=== PATIENT | female | born 1940 | race Caucasian/White ===

== ENCOUNTER 2019-02-24 15:59 | Inpatient (IN) | payer MEDICARE, MEDICAID ==
[~2019-02-24] VITALS: Ht 170.2 cm; Wt 52.6 kg
[~2019-02-24 15:59] MED LIST: IBUP-1955 PO
--- NOTE | 2019-02-24 16:12 | NUR ---
PATIENT BIB RA FROM [facility] FOR AGGRESSIVE BEHAVIOR TOWARDS STAFF. PATIENT IS ORDERED BY MD TO BE PLACED ON 2-POINT RESTRAINTS FOR THREATENING BEHAVIOR TOWARDS STAFF. PATIENT IS CONNECTED TO MONITOR. NAD NOTED. NO SOB. CHEST RISES EQUALLY. WILL CONTINUE MONITOR PATIENT FOR SAFETY.
[2019-02-24] MEDS ORDERED: QUET25TA PO (16:24)
[2019-02-24] MEDS ORDERED: SERT25TA PO (16:24)
[2019-02-24] MEDS ORDERED: NEOM28.3 TP (16:24)
[2019-02-24] MEDS ORDERED: AMOX1TAB15 PO (16:24)
[2019-02-24] MEDS ORDERED: SULF1TAB47 PO (16:24)
[2019-02-24] MEDS ORDERED: FURO-144 PO (16:24)
[2019-02-24] MEDS ORDERED: POTA10CA43 PO (16:24)
[2019-02-24] MEDS ORDERED: HALOPERIDOL LACTATE INJ 5 MG/ML VIAL IM ONE (16:30)
[2019-02-24] MEDS ORDERED: MIDAZOLAM HCL 2 MG/2ML VIAL IM ONE (16:30)
[2019-02-24 16:55] LABS: BASOPHILS # (AUTO) 0.1 /CMM (0.0-0.2); BASOPHILS % (AUTO) 1.4 % (0.0-2.0); EOSINOPHILS % (AUTO) 2.4 % (0.0-6.0); HEMATOCRIT 30 % (33-45); HEMOGLOBIN 10.1 g/dL (11.5-14.8); LYMPHOCYTES # (AUTO) 2.9 /CMM (0.8-4.8); LYMPHOCYTES % (AUTO) 34.2 % (20.0-44.0); MEAN CORPUSCULAR HGB CONC 33 g/dl (31.0-36.0); MEAN CORPUSCULAR VOLUME 91 fL (82-100); MONOCYTES % (AUTO) 12.2 % (2.0-12.0); NEUTROPHILS # (AUTO) 4.2 /CMM (1.8-8.9); NEUTROPHILS % (AUTO) 49.8 % (43.0-81.0); PLATELET COUNT (AUTO) 642 /CMM (150-450); RED BLOOD CELL COUNT(AUTO) 3.34 MIL/uL (4.0-5.2); WHITE BLOOD COUNT (AUTO) 8.5 K/uL (4.3-11.0)
[2019-02-24 17:04] LABS: CALCIUM, SERUM 9.2 mg/dL (8.5-10.1); CREATININE 1.1 mg/dL (0.6-1.3); POTASSIUM 4.3 mmol/L (3.5-5.1)
[2019-02-24 17:10] LABS: BILIRUBIN,DIRECT 0.1 mg/dL (0.0-0.2); BILIRUBIN,TOTAL 0.2 mg/dL (0.2-1.0); TOTAL PROTEIN, SERUM 7.2 g/dL (6.4-8.2)
--- NOTE | 2019-02-24 18:15 | NUR ---
CALLED NURSING SUP. FOR [facility] B[facility]
[2019-02-24 18:30] LABS: APPEARANCE,URINE Clear (CLEAR); BILIRUBIN,URINE SMALL (NEGATIVE); BLOOD, URINE Negative Ery/uL (NEGATIVE); COLOR,URINE Yellow (YELLOW); KETONES,URINE Negative (NEGATIVE); LEUKOCYTE ESTERASE ,URINE Negative (NEGATIVE); NITRITE, URINE Negative (NEGATIVE); PROTEIN,URINE Negative (NEGATIVE); UGLUCOSE Negative (NEGATIVE); UROBILINOGEN,URINE 0.2 EU/dL (0.2)
--- NOTE | 2019-02-24 19:34 | NUR ---
[facility]PS 219-A
--- NOTE | 2019-02-24 19:55 | NUR ---
REPORT GIVEN TO CHAY CHEUNG FOR MAGY PT WILL BE TRANSPORTED TO [facility]
--- NOTE | 2019-02-24 21:00 | NUR ---
RN NOTES : PLACED CALL DR. CALABRESE MADE AWARE HIM NEW ADMISSION MED RECON ,PER DR CALABRESE HE WILL SEE THE PATIENT IN THE MORNING
[2019-02-24] MEDS ORDERED: MAG HYDROX/AL HYDROX/SIMETH 30 ML UDC PO PRN (21:30)
[2019-02-24] MEDS ORDERED: BLOOD SUGAR DIAGNOSTIC 1 EACH STRIP IN ONE (21:30)
[2019-02-24] MEDS ORDERED: TEMAZEPAM 7.5 MG CAPSULE PO PRN (21:30)
[2019-02-24] MEDS ORDERED: MAGNESIUM HYDROXIDE 30 ML UDC PO PRN (21:30)
[2019-02-24] MEDS ORDERED: ACETAMINOPHEN 325 MG TABLET PO PRN (21:30)
[2019-02-24 21:40] VITALS: BP 133/66
[2019-02-24 23:16] VITALS: BP 123/70
[2019-02-24] MEDS: LORAZEPAM 0.5 MG TABLET PO PRN (23:33)
--- NOTE | 2019-02-25 00:06 | NUR ---
ADMISSION NOTES: ADMITTED THIS 79Y/O FEMALE PATIENT ADMIT FROM [facility] /INTIALLY FROM [facility] , PT ADMITTED TO [facility] ON 5150 GRAVELY DISABLE, DTO , PER HOLD. PT. WAS VERY LOUD VERBALLY ABUSIVE YELLING SCREAMING, CONFUSED, DISORGNIZED, REFUSING MEDICATIONS ,REFUSING CARE , NON COMPLIANCE WITH MEDS ,UPON FACE TO FACE ASSESSMENT PATIENT IS A&O X1 ,UNCOOPERATIVE, AGGRESSIVE, YELLING SCREAMING DISORGNIZED, CONFUSED ,ANXIOUS, FLAT AFFECT, PARNOID, DISHELVED ,EASILY GETS AGITATED, PER PT. I AM NOT BELONG TO HERE AND WANTS TO LEAVE, PT. IS POOR HISTORIAN, POOR INSIGHT ,POOR JUDGEMENT , PT. REFUSED TO TAKE SHOWER AT THIS TIME , PT. REFUSED TO SIGNING ADMISSION PAPAERS , DUE TO MENTAL STATUS , PT. SKIN ASSESSMENT DONE , PICTURES TAKEN AND PLACED IN THE CHART AND ON ADMISSION PT. PRESENTS WITH COCCYX DECUBITUS ULCER GRADE 3 AND BODY RASHES, WOUND CONSULT ORDERS PT. REFUSED TO CHECK INTIALLY BLOOD SUGAR, PER PT. I AM NOT DIABETIC, I DONT WANTS CHECK AT THIS TIME , ENCOURAGED, EXPLAINED RISKS AND BENEFITS STILL REFUSED, PT. V/S WNL , AWARE AND NOTIFIED OF THE ADMISSION, BELONGINGS CONTRABAND WERE DONE , NURSING ASSESSMENT DONE ,PT. RIGHTS DISCUSS BY CARE PROGRAM RESIDENT , PROVIDE THE PT. WITH HANDBOOK, AND MEDICATIONS GUIDE, ENVIRONMENTAL SAFETY CHECK DONE, ENCOURAGED PT. VERBALIZED ANY FEELING CONCERN TO STAFF, ORIENT TO UNIT POLICY, NO ACUTE DISTRESS NOTED,VITAL SIGNS WNL ,DENIES ANY PAIN AT THIS TIME ,WILL CONTINUE TO MONITOR FOR Q15 SAFETY AND BEHAVIOR. Addendum: 02/25/19 at 0715 by BRENT DIETZ RN ERROR COCCYX DECUBITUS ULCER GRADE 3 CHANGED TO SACRAL OPEN WOUND
[2019-02-25 07:12] LABS: ALBUMIN 2.8 g/dL (3.4-5.0); BILIRUBIN,TOTAL 0.2 mg/dL (0.2-1.0); POTASSIUM 3.4 mmol/L (3.5-5.1); TOTAL PROTEIN, SERUM 6.6 g/dL (6.4-8.2)
[2019-02-25 07:14] LABS: CHOLESTEROL 217 mg/dL (<200); HDL CHOLESTEROL 39 mg/dL (40-60); LDL 155 mg/dL (0-99); TRIGLYCERIDES 87 mg/dL (30-150)
[2019-02-25 08:00] VITALS: BP 100/52
[2019-02-25] MEDS: LORAZEPAM 0.5 MG TABLET PO PRN ×2 (09:49→15:18)
--- NOTE | 2019-02-25 10:47 | NUR ---
WOUND CARE CONSULT: PT PRESENTS WITH UNSTAGEABLE ULCER TO SACRUM, PRESENT ON ADMISSION. DRY BROWN DISCOLORATION NOTED TO TOES OF RT FOOT, ALSO PRESENT ON ADMISSION. PT IS CONTINENT AT THIS TIME AND ABLE TO ASSIST WITH TURNING AND REPOSITIONING IN BED. RECOMMENDATIONS MADE FOR WOUND CARE AND SKIN PROTECTION. DISCUSSED WITH NURSING STAFF. RECOMMEND SURGICAL CONSULT. DEFER TO MD FOR SURGICAL CONSULT. MSG LEFT AT DR ERNIE CALABRESE'S OFFICE. WILL SEE PRN. Addendum: 02/25/19 at 1050 by ELVIN AGUILAR WNDNU Amended: Links added. Addendum: 02/25/19 at 1157 by ELVIN AGUILAR WNDNU EDGE KITTER SPOKE WITH DR CALABRESE AND DR ARIELLA COOPER CONSULTED FOR SURGICAL CONSULT PER DR CALABRESE. DR COOPER AWARE OF CONSULT REQUEST. WOULD NOT RECOMMEND LOW AIRLOSS OVERLAY AT THIS TIME DUE TO FALL RISK. DISCUSSED WITH NURSING STAFF AND EDGE KITTER. CURRENT HILARIO SCORE IS 14.
[2019-02-25] MEDS: HYDROGEL DRESSING 90 GM TUBE TP SCH (11:00)
[2019-02-25 14:57] LABS: IRON, SERUM 43 ug/dl (50-175); TOTAL IRON BINDING CAPACITY 168 ug/dl (250-450)
[2019-02-25] MEDS ORDERED: POTASSIUM CHLORIDE 20 MEQ TAB.PRT.SR PO ONE (15:00)
[2019-02-25 16:00] VITALS: BP 105/67
[2019-02-25] MEDS: ZINC SULFATE 220 MG CAPSULE PO SCH (16:58)
[2019-02-25] MEDS: PANTOPRAZOLE 40 MG TABLET.DR PO SCH (16:58)
[2019-02-25] MEDS: ASCORBIC ACID 500 MG TABLET PO SCH (16:58)
[2019-02-25] MEDS ORDERED: QUETIAPINE FUMARATE 25 MG TABLET PO SCH ×2 (17:00→17:30)
[2019-02-25] MEDS: MULTIVITAMINS,THERAGRAN 1 UDTAB TABLET PO SCH (17:00)
[2019-02-25] MEDS: ENSURE ENLIVE CHOC 237 ML CAN PO SCH (17:03)
[2019-02-25 20:25] VITALS: BP 120/61
[2019-02-25] MEDS: DIVALPROEX SODIUM 125 MG CAP.SPRINK PO SCH (21:00)
[2019-02-25] MEDS: QUETIAPINE FUMARATE 25 MG TABLET PO SCH (21:00)
--- NOTE | 2019-02-25 23:00 | NUR ---
GPS RN NOTE: PATIENT RESTING IN BED, CONFUSED, QUIET, DISORGANIZED, ANXIOUS, PARANOID, EASILY AGITATED, REFUSED HS MEDS, EXPLAINED THE RISK AND BENEFITS X 3 ATTEMPTS BUT PATIENT STILL REFUSED. WILL CONTINUE TO MONITOR Q15 MINS FOR SAFETY
[2019-02-26 08:00] VITALS: BP 130/79
[2019-02-26] MEDS: ENSURE ENLIVE CHOC 237 ML CAN PO SCH ×3 (08:00→17:01)
[2019-02-26] MEDS: PANTOPRAZOLE 40 MG TABLET.DR PO SCH (08:04)
[2019-02-26] MEDS: ASCORBIC ACID 500 MG TABLET PO SCH (08:04)
[2019-02-26] MEDS: DIVALPROEX SODIUM 125 MG CAP.SPRINK PO SCH ×3 (08:04→21:42)
[2019-02-26] MEDS: QUETIAPINE FUMARATE 25 MG TABLET PO SCH ×3 (08:04→21:42)
[2019-02-26] MEDS: ZINC SULFATE 220 MG CAPSULE PO SCH (08:04)
[2019-02-26] MEDS: MULTIVITAMINS,THERAGRAN 1 UDTAB TABLET PO SCH (08:04)
[2019-02-26] MEDS: HYDROGEL DRESSING 90 GM TUBE TP SCH (08:19)
--- NOTE | 2019-02-26 11:52 | NUR ---
Initial Discharge Plan: Pt currently resides at [facility] located at [address] [place] [address]; ([phone]). Per facility, pt will return. SW will work with the pt and the MD regarding appropriate discharge planning. SW will form a safe and proper discharge.
--- NOTE | 2019-02-26 12:04 | NUR ---
SW called Art ([phone]) from [facility] and he stated that the pt will be returning to their facility.
--- NOTE | 2019-02-26 15:42 | NUR ---
GROUP NOTE: SW encouraged pt to participate in group on this present day discussing "discharge planning." Pt unable to participate due to cognitive impairment pt was banging her hand on the table and not responding when SW called her name.
[2019-02-26 16:00] VITALS: BP 128/70
[2019-02-26] MEDS: FERROUS SULFATE (325 MG) 325 MG/TAB TABLET PO SCH (17:25)
[2019-02-26 20:17] LABS: ALBUMIN 2.8 g/dL (3.4-5.0); BILIRUBIN,TOTAL 0.1 mg/dL (0.2-1.0); CALCIUM, SERUM 8.5 mg/dL (8.5-10.1); MAGNESIUM 2.2 mg/dL (1.8-2.4); POTASSIUM 3.8 mmol/L (3.5-5.1); TOTAL PROTEIN, SERUM 6.8 g/dL (6.4-8.2)
[2019-02-26 20:41] VITALS: BP 99/61
[2019-02-26 21:08] LABS: BASOPHILS % (AUTO) 0.4 % (0.0-2.0); EOSINOPHILS % (AUTO) 3.2 % (0.0-6.0); HEMATOCRIT 30 % (33-45); LYMPHOCYTES # (AUTO) 2.7 /CMM (0.8-4.8); LYMPHOCYTES % (AUTO) 37.5 % (20.0-44.0); MEAN CORPUSCULAR HGB CONC 33 g/dl (31.0-36.0); MEAN CORPUSCULAR VOLUME 91 fL (82-100); MONOCYTES # (AUTO) 0.9 /CMM (0.1-1.30); MONOCYTES % (AUTO) 12.6 % (2.0-12.0); NEUTROPHILS # (AUTO) 3.3 /CMM (1.8-8.9); NEUTROPHILS % (AUTO) 46.3 % (43.0-81.0); PLATELET COUNT (AUTO) 628 /CMM (150-450); RED BLOOD CELL COUNT(AUTO) 3.34 MIL/uL (4.0-5.2); WHITE BLOOD COUNT (AUTO) 7.1 K/uL (4.3-11.0)
[2019-02-27] MEDS: HYDROGEL DRESSING 90 GM TUBE TP PRN (06:22)
[2019-02-27] MEDS: PANTOPRAZOLE 40 MG TABLET.DR PO SCH (07:24)
[2019-02-27] MEDS: ENSURE ENLIVE CHOC 237 ML CAN PO SCH ×3 (07:24→16:17)
[2019-02-27 08:00] VITALS: BP 135/54
[2019-02-27] MEDS: ZINC SULFATE 220 MG CAPSULE PO SCH (08:32)
[2019-02-27] MEDS: DIVALPROEX SODIUM 125 MG CAP.SPRINK PO SCH ×4 (08:32→21:00)
[2019-02-27] MEDS: ASCORBIC ACID 500 MG TABLET PO SCH (08:32)
[2019-02-27] MEDS: QUETIAPINE FUMARATE 25 MG TABLET PO SCH ×5 (08:32→21:00)
[2019-02-27] MEDS: CYANOCOBALAMIN 1,000 MCG/ML VIAL IM SCH (08:32)
[2019-02-27] MEDS: MULTIVITAMINS,THERAGRAN 1 UDTAB TABLET PO SCH (08:32)
[2019-02-27] MEDS: FERROUS SULFATE (325 MG) 325 MG/TAB TABLET PO SCH ×2 (08:32→16:17)
[2019-02-27] MEDS: HYDROGEL DRESSING 90 GM TUBE TP SCH (08:32)
[2019-02-27] MEDS: LORAZEPAM 0.5 MG TABLET PO PRN (15:02)
[2019-02-27 16:00] VITALS: BP 115/56
[2019-02-27] MEDS: risperiDONE-M 0.5 MG TAB.RAPDIS PO SCH (16:17)
[2019-02-27 16:20] LABS: OCCULT BLOOD STOOL NEGATIVE (NEGATIVE)
[2019-02-27 20:19] VITALS: BP 109/74
--- NOTE | 2019-02-28 00:47 | NUR ---
PATIENT REFUSED TO TAKE HER MEDICATIONS DUE AT 2100 02/27/19, SEROQUEL 25 MG TAB AND DEPAKOTE 250 MG. ATTEMPTED 2X. PATIENT WAS IRRITABLE AND PUSHED MY HANDS, STATED," DON' TOUCH ME."
[2019-02-28] MEDS: HYDROGEL DRESSING 90 GM TUBE TP PRN (02:47)
--- NOTE | 2019-02-28 02:47 | NUR ---
DRESSING SOILED WITH URINE. CLEANSED WOUND WITH NS, PAT DRY ALLPIED CURASOL GEL AND COVERED WITH MEPILEX. TURNED AND REPOSITIONED Q 2H.
[2019-02-28 08:00] VITALS: BP 124/64
[2019-02-28] MEDS: ENSURE ENLIVE CHOC 237 ML CAN PO SCH ×3 (08:00→16:41)
[2019-02-28] MEDS: MULTIVITAMINS,THERAGRAN 1 UDTAB TABLET PO SCH (08:52)
[2019-02-28] MEDS: DIVALPROEX SODIUM 125 MG CAP.SPRINK PO SCH ×3 (08:52→23:04)
[2019-02-28] MEDS: ASCORBIC ACID 500 MG TABLET PO SCH (08:53)
[2019-02-28] MEDS: FERROUS SULFATE (325 MG) 325 MG/TAB TABLET PO SCH ×2 (08:53→16:41)
[2019-02-28] MEDS: QUETIAPINE FUMARATE 25 MG TABLET PO SCH ×3 (08:54→16:41)
[2019-02-28] MEDS: risperiDONE-M 0.5 MG TAB.RAPDIS PO SCH ×2 (08:54→16:41)
[2019-02-28] MEDS: PANTOPRAZOLE 40 MG TABLET.DR PO SCH (08:54)
[2019-02-28] MEDS: ZINC SULFATE 220 MG CAPSULE PO SCH (08:54)
[2019-02-28] MEDS: CYANOCOBALAMIN 1,000 MCG/ML VIAL IM SCH (08:55)
[2019-02-28] MEDS: HYDROGEL DRESSING 90 GM TUBE TP SCH (08:55)
[2019-02-28] MEDS: LORAZEPAM 0.5 MG TABLET PO PRN (11:56)
--- NOTE | 2019-02-28 14:05 | NUR ---
Art ([phone]) called the SW back and stated that the pt will be allowed to return to the facility once she is stable. SW stated that she would keep him updated.
[2019-02-28 16:09] VITALS: BP 109/84
--- NOTE | 2019-02-28 19:37 | NUR ---
PATIENT LYING IN BED, ASLEEP, BREATHING PATTERN NON-LABORED. NO APPARENT DISTRESS NOTED. ENVIRONMENTAL SAFETY CHECK DONE. FALL PRECAUTION OBSERVED, BED ALARM ON, BED LOCKED AND ON LOWEST POSITION. WILL CONTINUE TO MONITOR Q 15 MINS. TO MAINTAIN SAFETY.
[2019-02-28 20:22] VITALS: BP 114/74
--- NOTE | 2019-02-28 20:34 | NUR ---
PATIENT STILL ASLEEP, NO ACUTE DISTRESS NOTED.
--- NOTE | 2019-02-28 22:28 | NUR ---
PATIENT WOKE UP, OFFERED SANDWICH, JAMES PUDDING AND JUICE, REFUSED.OFFERED HER ROUTINE NIGHT MEDICATIONS, STATED, " NO". MADE INTERNAL CARVER UDAY AWARE OF PATIENT REFUSAL TO TAKE MEDS. WILL TRY AGAIN LATER.
[2019-02-28] MEDS: risperiDONE 1 MG TABLET PO SCH (23:05)
--- NOTE | 2019-02-28 23:05 | NUR ---
Patient took her routine night meds late around 11 pm tonight,, she was sleeping earlier and refusing also, meds mixed with celio pudding. Confused and very uncooperative.
[2019-03-01] MEDS: HYDROGEL DRESSING 90 GM TUBE TP PRN (06:40)
[2019-03-01 08:00] VITALS: BP_SYST 128; BP_SYST 144; BP_DIAS 67; BP_DIAS 80
[2019-03-01] MEDS: ZINC SULFATE 220 MG CAPSULE PO SCH (08:54)
[2019-03-01] MEDS: PANTOPRAZOLE 40 MG TABLET.DR PO SCH (08:54)
[2019-03-01] MEDS: MULTIVITAMINS,THERAGRAN 1 UDTAB TABLET PO SCH (08:54)
[2019-03-01] MEDS: FERROUS SULFATE (325 MG) 325 MG/TAB TABLET PO SCH ×2 (08:54→16:57)
[2019-03-01] MEDS: ASCORBIC ACID 500 MG TABLET PO SCH (08:54)
[2019-03-01] MEDS: ENSURE ENLIVE CHOC 237 ML CAN PO SCH ×3 (08:54→16:57)
[2019-03-01] MEDS: risperiDONE-M 0.5 MG TAB.RAPDIS PO SCH ×2 (08:54→16:57)
[2019-03-01] MEDS: DIVALPROEX SODIUM 125 MG CAP.SPRINK PO SCH ×3 (08:55→20:44)
[2019-03-01] MEDS: CYANOCOBALAMIN 1,000 MCG/ML VIAL IM SCH (08:56)
[2019-03-01] MEDS: risperiDONE 1 MG TABLET PO SCH ×3 (08:57→20:45)
[2019-03-01] MEDS: HYDROGEL DRESSING 90 GM TUBE TP SCH (09:11)
[2019-03-01] MEDS ORDERED: BENZTROPINE MESYLATE (1 MG) 1 MG TABLET PO SCH (15:30)
--- NOTE | 2019-03-01 15:46 | NUR ---
GPS/RN PT REFUFSED RISPERDAL SCHEDULED FOR 1530 OFFERED X3
[2019-03-01 16:00] VITALS: BP 134/72
[2019-03-01] MEDS: BENZTROPINE MESYLATE (1 MG) 1 MG TABLET PO SCH (16:57)
--- NOTE | 2019-03-01 20:06 | NUR ---
CHECKED HER DIAPER, DRESSING ON SACRAL AREA CLEAN. SHE IS ON HER RIGHT SIDE. AWAKE, ALERT, CONFUSED. CALM, NO ACUTE DISTRESS NOTED. BED LOCKED AND ON LOWEST POSITION, BED ALARM ON. ENVIRONMENTAL SAFETY CHECK DONE. SAFETY PRECAUTION MAINTAINED. FALL RISK PRECAUTION IN PLACE. WILL CONTINUE TO MONITOR Q 15 MINS. TO MAINTAIN SAFETY.
[2019-03-01 20:08] VITALS: BP 114/58
[2019-03-02 08:00] VITALS: BP 116/72
[2019-03-02] MEDS: risperiDONE 1 MG TABLET PO SCH ×3 (08:14→20:37)
[2019-03-02] MEDS: FERROUS SULFATE (325 MG) 325 MG/TAB TABLET PO SCH ×2 (08:14→17:02)
[2019-03-02] MEDS: DIVALPROEX SODIUM 125 MG CAP.SPRINK PO SCH ×3 (08:14→20:37)
[2019-03-02] MEDS: ENSURE ENLIVE CHOC 237 ML CAN PO SCH ×3 (08:15→17:00)
[2019-03-02] MEDS: PANTOPRAZOLE 40 MG TABLET.DR PO SCH (08:15)
[2019-03-02] MEDS: ASCORBIC ACID 500 MG TABLET PO SCH (08:15)
[2019-03-02] MEDS: ZINC SULFATE 220 MG CAPSULE PO SCH (08:15)
[2019-03-02] MEDS: risperiDONE-M 0.5 MG TAB.RAPDIS PO SCH ×2 (08:15→17:02)
[2019-03-02] MEDS: BENZTROPINE MESYLATE (1 MG) 1 MG TABLET PO SCH ×2 (08:15→17:02)
[2019-03-02] MEDS: MULTIVITAMINS,THERAGRAN 1 UDTAB TABLET PO SCH (08:15)
[2019-03-02] MEDS: CYANOCOBALAMIN 500 MCG TABLET PO SCH (08:17)
[2019-03-02] MEDS: HYDROGEL DRESSING 90 GM TUBE TP SCH (08:19)
[2019-03-02 12:25] LABS: BASOPHILS # (AUTO) 0.1 /CMM (0.0-0.2); BASOPHILS % (AUTO) 0.9 % (0.0-2.0); EOSINOPHILS % (AUTO) 1.8 % (0.0-6.0); HEMATOCRIT 34 % (33-45); HEMOGLOBIN 11.2 g/dL (11.5-14.8); LYMPHOCYTES # (AUTO) 2.3 /CMM (0.8-4.8); LYMPHOCYTES % (AUTO) 23.5 % (20.0-44.0); MEAN CORPUSCULAR HGB CONC 33 g/dl (31.0-36.0); MEAN CORPUSCULAR VOLUME 92 fL (82-100); MONOCYTES % (AUTO) 10.5 % (2.0-12.0); NEUTROPHILS # (AUTO) 6.2 /CMM (1.8-8.9); NEUTROPHILS % (AUTO) 63.3 % (43.0-81.0); PLATELET COUNT (AUTO) 601 /CMM (150-450); RED BLOOD CELL COUNT(AUTO) 3.74 MIL/uL (4.0-5.2); WHITE BLOOD COUNT (AUTO) 9.8 K/uL (4.3-11.0)
[2019-03-02 12:43] LABS: ALBUMIN 2.8 g/dL (3.4-5.0); BILIRUBIN,TOTAL 0.1 mg/dL (0.2-1.0); CALCIUM, SERUM 8.9 mg/dL (8.5-10.1); CREATININE 0.8 mg/dL (0.6-1.3); POTASSIUM 3.8 mmol/L (3.5-5.1); TOTAL PROTEIN, SERUM 6.9 g/dL (6.4-8.2)
[2019-03-02 16:00] VITALS: BP 122/61
--- NOTE | 2019-03-02 19:13 | NUR ---
RESTING CALMLY COMFORTABLE, BREATHING PATTERN NON-LABORED. CONFUSED, UNCOOPERATIVE, INCONTINENT. SACRAL WOUND DRESSING DRY AND INTACT, WOUND CLEAN AND DRY, MEPILEX DRESSING INTACT. ABLE TO MOVE FREELY IN BED. NO APPARENT DISTRESS NOTED. SAFETY PRECAUTION OBSERVED. PLACED BED ON LOWEST POSITION, BED ALARM ON. ENVIRONMENTAL SAFETY CHECK DONE. WILL CONTINUE TO MONITOR Q 15 MINS. FOR SAFETY AND BEHAVIOR.
--- NOTE | 2019-03-02 20:00 | NUR ---
REPOSITIONED PLACED PATIENT ON SUPINE POSITION.
[2019-03-02 20:36] VITALS: BP 122/73
--- NOTE | 2019-03-02 22:00 | NUR ---
DRESSING DONE ON SACRAL AREA WOUND, CLEANSED WITH NS, PAT DRY, APPLY HYDROGEL AND COVERED WITH MEPILEX. DIAPER WAS ALSO CHANGED. TURN AND REPOSITIONING DONE, PATIENT GOES BACK TO POSITION SHE PREFERS. PATIENT ABLE TO TURN ON HER OWN.
[2019-03-03 08:00] VITALS: BP 100/59
[2019-03-03] MEDS: MULTIVITAMINS,THERAGRAN 1 UDTAB TABLET PO SCH (08:58)
[2019-03-03] MEDS: risperiDONE 1 MG TABLET PO SCH ×3 (08:59→21:05)
[2019-03-03] MEDS: ZINC SULFATE 220 MG CAPSULE PO SCH (08:59)
[2019-03-03] MEDS: CYANOCOBALAMIN 500 MCG TABLET PO SCH (08:59)
[2019-03-03] MEDS: PANTOPRAZOLE 40 MG TABLET.DR PO SCH (08:59)
[2019-03-03] MEDS: BENZTROPINE MESYLATE (1 MG) 1 MG TABLET PO SCH ×2 (08:59→16:21)
[2019-03-03] MEDS: FERROUS SULFATE (325 MG) 325 MG/TAB TABLET PO SCH ×2 (08:59→16:21)
[2019-03-03] MEDS: risperiDONE-M 0.5 MG TAB.RAPDIS PO SCH ×2 (08:59→16:21)
[2019-03-03] MEDS: DIVALPROEX SODIUM 125 MG CAP.SPRINK PO SCH ×3 (08:59→21:05)
[2019-03-03] MEDS: ENSURE ENLIVE CHOC 237 ML CAN PO SCH ×3 (09:00→17:30)
[2019-03-03] MEDS: ASCORBIC ACID 500 MG TABLET PO SCH (09:00)
[2019-03-03] MEDS: HYDROGEL DRESSING 90 GM TUBE TP SCH (09:22)
--- NOTE | 2019-03-03 15:50 | NUR ---
GROUP NOTE: SW encouraged pt to participate in group therapy on this present day discussing "discharge planning." Pt is unable to participate in group therapy due to pts cognitive impairment and history of Dementia.
--- NOTE | 2019-03-03 16:04 | NUR ---
SNF Referral: SW faxed a referral to [facility] with attention to Suzanne to the fax number: [phone].
[2019-03-03 16:45] VITALS: BP 99/68
--- NOTE | 2019-03-03 21:00 | NUR ---
RN NOTES: DRESSING DONE ON SACRAL AREA WOUND, CLEANSED WITH NS, PAT DRY, APPLY HYDROGEL AND COVERED WITH MEPILEX. DIAPER WAS ALSO CHANGED. TURN AND REPOSITIONING DONE, PATIENT ABLE TO TURN ON HER OWN.ALL NEEDS ATTENDED ANTICIPATED.WILL CONTINUTIY WITH CARE .
[2019-03-03 21:22] VITALS: BP 132/80
--- NOTE | 2019-03-04 06:53 | NUR ---
RN NOTES: PT. RESTING IN HER BED COMFORTABLY, REPOSITIO Q 2HOURS,NO ACUTE DISTRESS NOTED, NO CHANGES OF CONDITION NOTED, ALL NEEDS ATTENDED ANTICIPATED, SAFETY PRECAUTION OBSERVED. BED ALARM ON, PLACED BED LOCKED AND ON LOWEST POSITION. ENVIRONMENTAL SAFETY CHECK DONE. WILL CONTINUE TO MONITOR Q 15 MINS. FOR SAFETY AND BEHAVIOR.
[2019-03-04] MEDS: PANTOPRAZOLE 40 MG TABLET.DR PO SCH ×2 (07:30→09:21)
[2019-03-04 07:43] LABS: BASOPHILS % (AUTO) 0.3 % (0.0-2.0); EOSINOPHILS % (AUTO) 2.4 % (0.0-6.0); HEMATOCRIT 33 % (33-45); LYMPHOCYTES # (AUTO) 2.3 /CMM (0.8-4.8); LYMPHOCYTES % (AUTO) 24.4 % (20.0-44.0); MEAN CORPUSCULAR HGB CONC 33 g/dl (31.0-36.0); MEAN CORPUSCULAR VOLUME 91 fL (82-100); MONOCYTES % (AUTO) 10.6 % (2.0-12.0); NEUTROPHILS % (AUTO) 62.3 % (43.0-81.0); PLATELET COUNT (AUTO) 592 /CMM (150-450); RED BLOOD CELL COUNT(AUTO) 3.67 MIL/uL (4.0-5.2); WHITE BLOOD COUNT (AUTO) 9.6 K/uL (4.3-11.0)
[2019-03-04 07:56] LABS: ALBUMIN 2.8 g/dL (3.4-5.0); BILIRUBIN,TOTAL 0.4 mg/dL (0.2-1.0); CALCIUM, SERUM 8.9 mg/dL (8.5-10.1); CREATININE 0.9 mg/dL (0.6-1.3); TOTAL PROTEIN, SERUM 7.2 g/dL (6.4-8.2)
[2019-03-04 08:00] VITALS: BP 106/64
[2019-03-04] MEDS: risperiDONE 1 MG TABLET PO SCH ×3 (08:00→09:25)
[2019-03-04 08:01] LABS: PREALBUMIN 17.8 MG/DL (18.0-35.7)
[2019-03-04] MEDS: FERROUS SULFATE (325 MG) 325 MG/TAB TABLET PO SCH ×3 (09:00→17:33)
[2019-03-04] MEDS: ASCORBIC ACID 500 MG TABLET PO SCH ×2 (09:00→09:22)
[2019-03-04] MEDS: DIVALPROEX SODIUM 125 MG CAP.SPRINK PO SCH ×4 (09:00→21:36)
[2019-03-04] MEDS: BENZTROPINE MESYLATE (1 MG) 1 MG TABLET PO SCH ×3 (09:00→17:33)
[2019-03-04] MEDS: CYANOCOBALAMIN 500 MCG TABLET PO SCH ×2 (09:00→09:22)
[2019-03-04] MEDS: MULTIVITAMINS,THERAGRAN 1 UDTAB TABLET PO SCH ×2 (09:00→09:22)
[2019-03-04] MEDS: ZINC SULFATE 220 MG CAPSULE PO SCH ×2 (09:00→09:22)
[2019-03-04] MEDS: risperiDONE-M 0.5 MG TAB.RAPDIS PO SCH ×2 (09:00→17:34)
[2019-03-04] MEDS: HYDROGEL DRESSING 90 GM TUBE TP SCH (09:48)
[2019-03-04] MEDS: ENSURE ENLIVE CHOC 237 ML CAN PO SCH ×4 (09:48→17:33)
--- NOTE | 2019-03-04 10:00 | NUR ---
CALL OUT TO DR. SANDRA'S OFFICE LEFT WORD THAT DR. CALABRESE REQUESTING DEBRIDEMENT OF SACRUM.INFO TO BE GIVEN TO
--- NOTE | 2019-03-04 14:30 | NUR ---
Lizeth ([phone]) from [facility] contacted the SW and stated that the pt was accepted to their facility.
--- NOTE | 2019-03-04 14:32 | NUR ---
SNF Referral: Per GARRY Luna faxed a referral to [facility] [place] with attention to Devon to the fax number: [phone].
--- NOTE | 2019-03-04 15:02 | NUR ---
Radha ([phone]) from [facility] called the SW and stated that the pt was denied to their facility due to her behaviors.
--- NOTE | 2019-03-04 15:02 | NUR ---
SNF Referral: Per Dr. Tamez, GARRY faxed a referral to [facility] with attention to Phoebe to the fax number: [phone].
[2019-03-04 16:00] VITALS: BP 100/52
[2019-03-04 20:46] VITALS: BP 113/63
[2019-03-04 21:30] VITALS: BP 161/68
[2019-03-05 06:22] VITALS: BP 139/66
--- NOTE | 2019-03-05 07:01 | NUR ---
SLEPT WELL FOR 8.5 HRS. SHE MADE A LITTLE NOISE BY BANGING THE SIDERAILS LAST NIGHT, OTHERWISE CALM, QUIET, TOOK HER MEDS. WILL CONTINUE TO MONITOR.
[2019-03-05 08:00] VITALS: BP 100/52
[2019-03-05] MEDS: CYANOCOBALAMIN 500 MCG TABLET PO SCH (09:57)
[2019-03-05] MEDS: risperiDONE-M 0.5 MG TAB.RAPDIS PO SCH ×2 (09:57→17:49)
[2019-03-05] MEDS: ZINC SULFATE 220 MG CAPSULE PO SCH (09:58)
[2019-03-05] MEDS: PANTOPRAZOLE 40 MG TABLET.DR PO SCH (09:58)
[2019-03-05] MEDS: DIVALPROEX SODIUM 125 MG CAP.SPRINK PO SCH ×3 (09:58→20:53)
[2019-03-05] MEDS: FERROUS SULFATE (325 MG) 325 MG/TAB TABLET PO SCH ×2 (09:58→17:49)
[2019-03-05] MEDS: BENZTROPINE MESYLATE (1 MG) 1 MG TABLET PO SCH ×2 (09:58→17:50)
[2019-03-05] MEDS: ASCORBIC ACID 500 MG TABLET PO SCH (09:58)
[2019-03-05] MEDS: MULTIVITAMINS,THERAGRAN 1 UDTAB TABLET PO SCH (10:08)
[2019-03-05] MEDS: ENSURE ENLIVE CHOC 237 ML CAN PO SCH ×3 (10:08→17:49)
[2019-03-05] MEDS: HYDROGEL DRESSING 90 GM TUBE TP SCH (10:09)
[2019-03-05 16:00] VITALS: BP 139/71
--- NOTE | 2019-03-05 16:00 | NUR ---
AT THIS TIME COOPERATIVE WITH MEDS.
--- NOTE | 2019-03-05 16:19 | NUR ---
Group Note: SW encouraged pt to participate in group therapy on 03/05/19 at 2pm discussing the topic of depression. Pt is inappropriate for group to due to her cognitive impairment and disruptive behaviors.
[2019-03-05 21:12] VITALS: BP 112/51
[2019-03-06 08:00] VITALS: BP 116/64
[2019-03-06] MEDS: MULTIVITAMINS,THERAGRAN 1 UDTAB TABLET PO SCH (08:09)
[2019-03-06] MEDS: ENSURE ENLIVE CHOC 237 ML CAN PO SCH ×2 (08:09→12:13)
[2019-03-06] MEDS: PANTOPRAZOLE 40 MG TABLET.DR PO SCH (08:09)
[2019-03-06] MEDS: HYDROGEL DRESSING 90 GM TUBE TP SCH (08:09)
[2019-03-06] MEDS: ASCORBIC ACID 500 MG TABLET PO SCH (08:09)
[2019-03-06] MEDS: ZINC SULFATE 220 MG CAPSULE PO SCH (08:09)
[2019-03-06] MEDS: DIVALPROEX SODIUM 125 MG CAP.SPRINK PO SCH ×2 (08:09→12:13)
[2019-03-06] MEDS: FERROUS SULFATE (325 MG) 325 MG/TAB TABLET PO SCH ×2 (08:09→16:54)
[2019-03-06] MEDS: risperiDONE-M 0.5 MG TAB.RAPDIS PO SCH (08:10)
[2019-03-06] MEDS: CYANOCOBALAMIN 500 MCG TABLET PO SCH (08:10)
[2019-03-06] MEDS: BENZTROPINE MESYLATE (1 MG) 1 MG TABLET PO SCH ×2 (08:10→16:53)
--- NOTE | 2019-03-06 08:15 | NUR ---
GPS/RN-NOTES DID WOUND TREATMENT ON SACRAL AREA ORDERED.
--- NOTE | 2019-03-06 12:18 | NUR ---
DR. BONNIE COOPER GAVE AN ORDER TO TRANSFER PT. TO MEDICAL FLOOR FOR THE DEBRIDEMENT AND PLACE ON NPO AND SAID TO COORDINATE TO DR. CALABRESE. DR. CALABRESE WAS NOTIFIED AND DR. SARAVIA WAS MADE AWARE AND ORDERED TO D/C PT. MEDICAL FLOOR AND TO CONTINUE ON HOLD.
[2019-03-06 16:00] VITALS: BP 113/98
[2019-03-06] MEDS ORDERED: risperiDONE-M 0.5 MG TAB.RAPDIS PO SCH (17:00)
--- NOTE | 2019-03-06 17:10 | NUR ---
GPS/RN-NOTES PATIENT DISCHARGE TO [facility] TODAY FOR DEBRIDEMENT . DR. SARAVIA AND DR. CALABRESE AWARE AND AGREES OF THE DISCHARGE WITH ORDERS. PATIENT DID NOT VERBALIZE SI/HI,DENIES VISUAL/AUDITORY HALLUCINATIONS AT THE TIME OF DISCHARGE.PATIENT WAS TRANSPORTED VIA GERICHAIR AWAKE,ALERT WITH CONFUSION.REPORT WAS GIVEN TO EDWARD OBSTETRICIAN, ALL DISCHARGE PAPERS INCLUDING 5250 HOLD WAS GIVEN TO HER. LEFT A VOICE MSG TO ERNIE NEXT OF SKIN LISTED ON THE FACE SHEET.
[2019-03-06] MEDS ORDERED: DIVALPROEX SODIUM 125 MG CAP.SPRINK PO SCH (21:00)
== END 2019-03-06 17:10 | disposition short-term general hospital (02) | DRG 885 ==
LOC: ER 16:06 → GPS 19:39
PROVIDERS: ADMIT Psychiatry & Neurology Psychosomatic Medicine; ATTEND Internal Medicine
DX: F25.9 Schizoaffective disorder, unspecified (principal); Z68.1 Body mass index [BMI] 19.9 or less, adult; E44.1 Mild protein-calorie malnutrition; F23 Brief psychotic disorder; F41.9 Anxiety disorder, unspecified; R62.7 Adult failure to thrive; E88.09 Other disorders of plasma-protein metabolism, not elsewhere classified; Z86.73 Personal history of transient ischemic attack (TIA), and cerebral infarction without residual deficits; G40.909 Epilepsy, unspecified, not intractable, without status epilepticus; F03.90 Unspecified dementia, unspecified severity, without behavioral disturbance, psychotic disturbance, mood disturbance, and anxiety; D51.9 Vitamin B12 deficiency anemia, unspecified; D50.9 Iron deficiency anemia, unspecified; D63.8 Anemia in other chronic diseases classified elsewhere; I10 Essential (primary) hypertension; L89.159 Pressure ulcer of sacral region, unspecified stage; Z87.440 Personal history of urinary (tract) infections; J45.909 Unspecified asthma, uncomplicated
CPT/HCPCS: 36415; 71045-TC; 80048-TC; 80053-TC; 80061-TC; 80076-TC; 80164-TC; 81000-TC; 82272-TC; 82378; 83540-TC; 83735-TC; 84134-TC; 85025-TC; 85045-TC; 85610-TC; 85730-TC; 87081-TC; 87086-TC; 97116-TC; 97530-TC; A6248; A6403; J3420

== ENCOUNTER 2019-03-06 18:25 | Inpatient (IN) | payer MEDICARE, OTHER ==
[~2019-03-06] VITALS: Ht 170.2 cm; Wt 51.7 kg
[~2019-03-06 18:25] MED LIST changes: +AMOX1TAB15 PO; +FURO-144 PO; -IBUP-1955 PO; +NEOM28.3 TP; +POTA10CA43 PO; +SULF1TAB47 PO
--- NOTE | 2019-03-06 19:00 | NUR ---
[facility]20 PT AWAKE, CONFUSED, NOT ABLE TO ANSWER QUESTIONS OR COMMUNICATE APPROPRIATELY. PT IS ON ROOM AIR, SATURATING WELL, NO SIGNS OF RESPIRATORY DISTRESS NOTED. BED IN LOW POSITION, LOCKED, CALL LIGHT WITHIN REACH. PT HAS SITTER BY BEDSIDE. ATTEMPTED TWICE TO INSERT IV INTO LEFT AC, PT BECAME COMBATIVE, BOTH ATTEMPTS UNSUCCESSFUL. ADMITTING DEPARTMENT DID NOT ENTER PT INTO [employer] SYSTEM. CALLED ADMITTING AT 17:45, ADMITTING STATED THEY WILL ENTER THE PT INTO SYSTEM SHORTLY. AT 18:00 PT STILL NOT IN SYSTEM. CALLED ADMITTING AGAIN. 18:30- PT NOT IN SYSTEM. CHARGE NURSE SOON NOTIFIED- CALLED NURSING METAL FABRICATION SUPERVISOR TO NOTIFY OF THE DELAY ON THE ADMITTING SIDE. 19:00 PT WAS ENTERED INTO SYSTEM. AXILLARY TEMP 102.1 AT 18:[address] DR. MORA TO NOTIFY: RECEIVED TELEPHONE ORDER FOR TYLENOL 650MG PO EVERY 6 HOURS PRN. DUE TO THE FACT OF PT NOT IN SYSTEM, WAS UNABLE TO ADMINISTER MEDICATION FROM [facility]. COOLING MEASURES ENFORCED. CALLED DR. ARIELLA COOPER TO NOTIFY OF PT'S FEVER, DR. COOPER SAID HE WILL STILL PERFORM WOUND DEBRIDEMENT. 19:12 ADMINISTERED 650MG TYLENOL PO, PT TOLERATED WELL. ENDORSED TO [facility] SHIFT NURSE.
[2019-03-06] MEDS: ACETAMINOPHEN 325 MG TABLET PO PRN (19:12)
--- NOTE | 2019-03-06 19:25 | NUR ---
MS/RN notes Patient received in bed, resting comfortably at this time. No S/S of acute distress noted, respiration even and unlabored. No SOB noted. Patient alert and oriented x1, No S/S of pain noted at this time. IV site on left wrist noted with no S/S of infection/ infiltration, flushing well. Safety maintained, bed at the lowest locked position. sitter at the bed side. call light within reach. will continue to monitor patient as per plan of care.
[2019-03-06] MEDS ORDERED: ACETAMINOPHEN 650 MG/SUPP.RECT RC PRN (19:30)
[2019-03-06] MEDS ORDERED: ONDANSETRON HCL/PF 4 MG/2 ML VIAL IV PRN (19:30)
[2019-03-06] MEDS ORDERED: IV NS 0.9% 500 ML IV ONE (19:30)
[2019-03-06 20:00] VITALS: BP 108/61
[2019-03-06] MEDS ORDERED: FEE PK DOSING 1 MIN EA MC ONE (20:31)
--- NOTE | 2019-03-06 20:40 | NUR ---
Pharmacy called at this time regarding patient lactic acid being 2.0. will call and relay critical lab
--- NOTE | 2019-03-06 20:41 | NUR ---
called Dr. correia at this time, relayed patient critical lab result, V/S and condition with no new order at this time. Will continue to monitor patient.
[2019-03-06] MEDS ORDERED: CEFEPIME 2 GM in IV D5W 100 ML IV SCH (21:00)
[2019-03-06] MEDS ORDERED: CEFEPIME 1 GM in IV NS 0.9% 50 ML IV SCH (21:00)
--- NOTE | 2019-03-06 21:33 | NUR ---
patient left for wound debridement, report given at the bed site to the nurse from surgery. in no acute distress. Addendum: 03/06/19 at 2311 by MARIAA NTONIA AUGUSTINE RN report given to Richy
--- NOTE | 2019-03-06 23:06 | NUR ---
patient back from surgery in stable condition, no S/S of acute distress at this time. Respiration even and unlabored. No SOB noted, patient S/P debridement of sacral wound, dressing intact, no active bleeding noted at this time. will continue to monitor. Dr. vela in the unit, with no new orders at this time.
[2019-03-06] MEDS: VANCOMYCIN 1 GM in IV D5W 250 ML IV SCH (23:18)
[2019-03-06] MEDS: IV D5/0.45 NACL 1,000 ML IV SCH (23:18)
[2019-03-06] MEDS: CEFEPIME 2 GM in IV D5W 100 ML IV SCH (23:18)
[2019-03-07 01:41] LABS: BILIRUBIN,DIRECT 0.1 mg/dL (0.0-0.2); BILIRUBIN,TOTAL 0.3 mg/dL (0.2-1.0); CREATININE 0.9 mg/dL (0.6-1.3)
[2019-03-07 04:00] VITALS: BP 109/67
--- NOTE | 2019-03-07 06:50 | NUR ---
MS/RN notes Patient in bed, resting comfortably at this time. No S/S of acute distress noted, respiration even and unlabored. No SOB noted. S/S of pain noted at this time. IV site on left wrist noted with no S/S of infection/ infiltration, flushing well. Running with fluids as ordered. Safety maintained, bed at the lowest locked position. sitter at the bed side. call light within reach. will endorse to AM shift nurse for MAGY.
--- NOTE | 2019-03-07 06:54 | NUR ---
F/C in place draining well with clear yellow urine with output of 750 in this shift.
--- NOTE | 2019-03-07 07:05 | NUR ---
MS RN NOTES PT IN BED A/OX1 UNCLEAR CONVERSATION. WITH SITTER AT BED SIDE. PT ON ROOM AIR NO SIGNS OF DISCOMFORT AND SOB NOTED AT THIS TIME. LEFT IV LINE PATENT AND FLUSHED WELL. SAFETY MEASURE IMPLEMENTED. BED AT THE LOWEST POSITION AND LOCKED , CALL LIGHT WITHIN REACH. ENDORSED TO PURCHASING INTERNSHIP FOR MAGY.
[2019-03-07 07:06] LABS: BASOPHILS % (AUTO) 0.2 % (0.0-2.0); EOSINOPHILS % (AUTO) 0.9 % (0.0-6.0); HEMATOCRIT 27 % (33-45); HEMOGLOBIN 8.8 g/dL (11.5-14.8); LYMPHOCYTES # (AUTO) 1.6 /CMM (0.8-4.8); LYMPHOCYTES % (AUTO) 11.7 % (20.0-44.0); MEAN CORPUSCULAR HGB CONC 33 g/dl (31.0-36.0); MEAN CORPUSCULAR VOLUME 91 fL (82-100); MONOCYTES # (AUTO) 1.6 /CMM (0.1-1.30); NEUTROPHILS # (AUTO) 10.3 /CMM (1.8-8.9); NEUTROPHILS % (AUTO) 75.2 % (43.0-81.0); PLATELET COUNT (AUTO) 427 /CMM (150-450); WHITE BLOOD COUNT (AUTO) 13.7 K/uL (4.3-11.0)
[2019-03-07 07:15] LABS: ALBUMIN 2.3 g/dL (3.4-5.0); BILIRUBIN,TOTAL 0.4 mg/dL (0.2-1.0); CALCIUM, SERUM 8.1 mg/dL (8.5-10.1); CREATININE 0.8 mg/dL (0.6-1.3); POTASSIUM 3.9 mmol/L (3.5-5.1); TOTAL PROTEIN, SERUM 6.3 g/dL (6.4-8.2)
[2019-03-07] MEDS: ASCORBIC ACID 500 MG TABLET PO SCH (08:48)
[2019-03-07] MEDS: ZINC SULFATE 220 MG CAPSULE PO SCH (08:48)
[2019-03-07] MEDS: PANTOPRAZOLE 40 MG TABLET.DR PO SCH (08:48)
[2019-03-07] MEDS: ENOXAPARIN SODIUM 40 MG/0.4 ML DISP.SYRIN SQ SCH (09:00)
--- NOTE | 2019-03-07 09:15 | NUR ---
WOUND CARE CONSULT: PT SEEN FOR S/P DEBRIDEMENT OF SACRAL WOUND. DRESSING CHANGED WITH MUCH DIFFICULTY DUE TO PT BEHAVIOR. SITTER AT BEDSIDE ALONG WITH RN. DRESSING CHANGES PER SURGEON. DISCUSSED SKIN PROTECTION WITH NURSING STAFF. PT ON LILLIAN ISOFLEX LOW AIRLOSS BED. WILL SEE PRN. WAGNER IN AGREEMENT WITH PLAN OF CARE. Addendum: 03/07/19 at 0917 by ELVIN AGUILAR WNDNU Amended: Links added.
[2019-03-07] MEDS: IV D5/0.45 NACL 1,000 ML IV SCH ×2 (11:08→23:54)
[2019-03-07] MEDS: CEFEPIME 2 GM in IV D5W 100 ML IV SCH (11:09)
[2019-03-07] MEDS: Z GUARD REMEDY 2 OZ OINT TP PRN ×2 (11:26→11:34)
--- NOTE | 2019-03-07 11:32 | NUR ---
RN MS NOTES PT IS CONFUSED AND COMBATIVE. LOVENOX DID NOT ADMINISTRATED AND WASTED IN WASTE BIN.
[2019-03-07 12:00] VITALS: BP 100/46
--- NOTE | 2019-03-07 12:04 | NUR ---
dr. velez seen and evaluated patient clear to discontinue hold.gps notified.
[2019-03-07] MEDS: VANCOMYCIN 1 GM in IV D5W 250 ML IV SCH (15:18)
[2019-03-07] MEDS: DAKINS QUARTER STRENGTH (0.125%) 480 ML BOTTLE TOP SCH (15:19)
[2019-03-07] MEDS: Z GUARD REMEDY 2 OZ OINT TP SCH (15:21)
[2019-03-07] MEDS: ENSURE ENLIVE 237 ML LIQUID (VANILLA) PO SCH ×2 (18:35→18:36)
--- NOTE | 2019-03-07 19:10 | NUR ---
MS RN NOTES PT IN BED SLEEPING SITTER AT BED SIDE. PT ON ROOM AIR NO SIGNS OF DISCOMFORT AND SOB NOTED AT THIS TIME. LEFT IV LINE PATENT AND FLUSHED WELL. SAFETY MEASURE IMPLEMENTED. BED AT THE LOWEST POSITION AND LOCKED , CALL LIGHT WITHIN REACH. ENDORSED TO AFTER SCHOOL PROGRAM DIRECTOR FOR MAGY.
--- NOTE | 2019-03-07 19:25 | NUR ---
MS/RN notes Patient received in bed, resting comfortably at this time. No S/S of acute distress noted, respiration even and unlabored. No SOB noted. Patient alert and oriented x1, No S/S of pain noted at this time. IV site on left wrist noted with no S/S of infection/ infiltration, flushing well, running with fluids as ordered. Safety maintained, bed at the lowest locked position. call light within reach. will continue to monitor patient as per plan of care.
[2019-03-07 20:00] VITALS: BP 100/52
[2019-03-07] MEDS: CEFEPIME 1 GM in IV D5W 50 ML IV SCH (21:14)
[2019-03-08 04:00] VITALS: BP 103/56
--- NOTE | 2019-03-08 06:50 | NUR ---
MS/RN notes Patient remained in bed, resting comfortably at this time. No S/S of acute distress noted, respiration even and unlabored. No SOB noted. No S/S of pain noted at this time. IV site on left wrist noted with no S/S of infection/ infiltration, flushing well, running with fluids as ordered. All due meds given as ordered, Kept clean and dry. All needs attendant. Safety maintained, bed at the lowest locked position. call light within reach. Will endorse to AM shift nurse for MAGY.
[2019-03-08 06:59] LABS: BASOPHILS % (AUTO) 0.3 % (0.0-2.0); EOSINOPHILS % (AUTO) 1.9 % (0.0-6.0); HEMATOCRIT 27 % (33-45); LYMPHOCYTES # (AUTO) 1.7 /CMM (0.8-4.8); LYMPHOCYTES % (AUTO) 17.2 % (20.0-44.0); MEAN CORPUSCULAR HGB CONC 34 g/dl (31.0-36.0); MEAN CORPUSCULAR VOLUME 91 fL (82-100); MONOCYTES # (AUTO) 1.1 /CMM (0.1-1.30); MONOCYTES % (AUTO) 11.7 % (2.0-12.0); NEUTROPHILS # (AUTO) 6.7 /CMM (1.8-8.9); NEUTROPHILS % (AUTO) 68.9 % (43.0-81.0); PLATELET COUNT (AUTO) 417 /CMM (150-450); RED BLOOD CELL COUNT(AUTO) 2.97 MIL/uL (4.0-5.2); WHITE BLOOD COUNT (AUTO) 9.7 K/uL (4.3-11.0)
[2019-03-08 07:20] LABS: CALCIUM, SERUM 8.1 mg/dL (8.5-10.1); CREATININE 0.6 mg/dL (0.6-1.3); POTASSIUM 3.3 mmol/L (3.5-5.1)
--- NOTE | 2019-03-08 07:20 | NUR ---
MS RN OPENING NOTES RECEIVED REPORT FROM PM NURSE.PT IN BED.AWAKE.NO SOB NO DISTRESS NOTED.TAKING OFF ALL CLOTHES AND LINEN.TOUCHING IV LINES AND TRYING TO PULL.EDUCATED BUT UNABLE DUE TO CONFUSION.AXOX1. ON ROOM AIR. IV LINE INTACT AND PATENT WITH IVF ONGOING.SAFETY MEASURES IN PLACE.BED IS LOW AND IN LOCKED POSITION.CALL LIGHT IN REACH.BED ALARM ON.SRX4.WILL CONTINUE TO MONITOR.
[2019-03-08 08:00] VITALS: BP 108/50
[2019-03-08] MEDS: ZINC SULFATE 220 MG CAPSULE PO SCH (08:07)
[2019-03-08] MEDS: CYANOCOBALAMIN 500 MCG TABLET PO SCH (08:07)
[2019-03-08] MEDS: PANTOPRAZOLE 40 MG TABLET.DR PO SCH (08:07)
[2019-03-08] MEDS: VANCOMYCIN 1 GM in IV D5W 250 ML IV SCH (08:08)
[2019-03-08] MEDS: ENOXAPARIN SODIUM 40 MG/0.4 ML DISP.SYRIN SQ SCH (08:08)
[2019-03-08] MEDS: ASCORBIC ACID 500 MG TABLET PO SCH (08:09)
[2019-03-08] MEDS: Z GUARD REMEDY 2 OZ OINT TP PRN (08:15)
[2019-03-08] MEDS: DAKINS QUARTER STRENGTH (0.125%) 480 ML BOTTLE TOP SCH (08:15)
[2019-03-08] MEDS: Z GUARD REMEDY 2 OZ OINT TP SCH (08:16)
[2019-03-08] MEDS: ENSURE ENLIVE 237 ML LIQUID (VANILLA) PO SCH ×2 (09:00→17:54)
[2019-03-08] MEDS: CEFEPIME 1 GM in IV D5W 50 ML IV SCH ×2 (10:19→22:30)
--- NOTE | 2019-03-08 11:59 | NUR ---
MS RN NOTE CALL MADE TO ,UPDATED ABOUT PATIENT CONDITION WITH LABS.GOT NEW ORDER FOR ZYPREXA 5MG DAILY.AND POTASSIUM 40MGX1 AND TO CONTINUE RESTRAINT.WILL CONTINUE TO MONITOR.
[2019-03-08] MEDS ORDERED: POTASSIUM CHLORIDE 20 MEQ POWDER PACKET GT ONE (12:00)
[2019-03-08] MEDS: OLANZAPINE 5 MG TABLET PO SCH (12:30)
[2019-03-08 16:00] VITALS: BP 155/82
[2019-03-08] MEDS: ACETAMINOPHEN 325 MG TABLET PO PRN (17:40)
[2019-03-08] MEDS: MEGESTROL ACETATE SUSP 400 MG/10 ML UDC PO SCH (17:40)
--- NOTE | 2019-03-08 19:25 | NUR ---
MS/RN notes Patient received in bed, awake, No S/S of acute distress noted, respiration even and unlabored. No SOB noted. Patient alert and oriented x1, No S/S of pain noted at this time. IV site on right hand noted with no S/S of infection/ infiltration, flushing well. F/C in place place, patent, draining well with clear yellow urine. bilateral soft wrist restraint in place, Safety maintained, bed at the lowest locked position. call light within reach. will continue to monitor patient as per plan of care.
--- NOTE | 2019-03-08 19:56 | NUR ---
report given to Maty registry Nurse
[2019-03-08] MEDS: DIVALPROEX SODIUM 125 MG TABLET.DR PO SCH (21:00)
[2019-03-09 01:20] VITALS: BP 128/78
[2019-03-09] MEDS: VANCOMYCIN 1 GM in IV D5W 250 ML IV SCH ×2 (03:45→21:40)
[2019-03-09 07:10] LABS: BASOPHILS % (AUTO) 0.2 % (0.0-2.0); EOSINOPHILS % (AUTO) 1.2 % (0.0-6.0); HEMATOCRIT 27 % (33-45); LYMPHOCYTES # (AUTO) 1.4 /CMM (0.8-4.8); LYMPHOCYTES % (AUTO) 16.5 % (20.0-44.0); MEAN CORPUSCULAR HGB CONC 34 g/dl (31.0-36.0); MEAN CORPUSCULAR VOLUME 90 fL (82-100); MONOCYTES # (AUTO) 1.1 /CMM (0.1-1.30); MONOCYTES % (AUTO) 12.6 % (2.0-12.0); NEUTROPHILS # (AUTO) 6.1 /CMM (1.8-8.9); NEUTROPHILS % (AUTO) 69.5 % (43.0-81.0); PLATELET COUNT (AUTO) 460 /CMM (150-450); RED BLOOD CELL COUNT(AUTO) 3.01 MIL/uL (4.0-5.2); WHITE BLOOD COUNT (AUTO) 8.7 K/uL (4.3-11.0)
[2019-03-09 07:35] LABS: CALCIUM, SERUM 8.6 mg/dL (8.5-10.1); CREATININE 0.7 mg/dL (0.6-1.3); POTASSIUM 3.4 mmol/L (3.5-5.1)
[2019-03-09 08:00] VITALS: BP 105/68
[2019-03-09] MEDS: OLANZAPINE 5 MG TABLET PO SCH (08:51)
[2019-03-09] MEDS: CYANOCOBALAMIN 500 MCG TABLET PO SCH (08:51)
[2019-03-09] MEDS: DIVALPROEX SODIUM 125 MG TABLET.DR PO SCH ×2 (08:51→21:22)
[2019-03-09] MEDS: ASCORBIC ACID 500 MG TABLET PO SCH (08:51)
[2019-03-09] MEDS: MEGESTROL ACETATE SUSP 400 MG/10 ML UDC PO SCH ×2 (08:51→16:46)
[2019-03-09] MEDS: ZINC SULFATE 220 MG CAPSULE PO SCH (08:51)
[2019-03-09] MEDS: PANTOPRAZOLE 40 MG TABLET.DR PO SCH (08:51)
[2019-03-09] MEDS: ENOXAPARIN SODIUM 40 MG/0.4 ML DISP.SYRIN SQ SCH (09:26)
[2019-03-09] MEDS: ENSURE ENLIVE 237 ML LIQUID (VANILLA) PO SCH ×3 (09:27→16:46)
[2019-03-09] MEDS: DAKINS QUARTER STRENGTH (0.125%) 480 ML BOTTLE TOP SCH (09:27)
[2019-03-09] MEDS: Z GUARD REMEDY 2 OZ OINT TP SCH (09:28)
[2019-03-09] MEDS: CEFEPIME 1 GM in IV D5W 50 ML IV SCH ×2 (09:45→21:24)
[2019-03-09 16:00] VITALS: BP 121/68
--- NOTE | 2019-03-09 17:51 | NUR ---
VOCATIONAL COUNSELOR CLOSING PATIENT NONVERBAL, DOES NOT TRACK OR FOLLOW COMMAND, ATTACHED TO TRACH+MECH VENT. NO RESPIRATORY DISTRESS, CURRENT VENT SETTINGS TOLERATED. NOTED TO COUGH AT TIMES, SUCTIONED SMALL AMOUNT OF WHITE SPUTUM, SAMPLE OBTAINED ORDERED AND PLACED IN REFRIGERATOR. PULSE OX ATTACHED, ALARM AUDIBLE. TELE ATTACHED, SINUS RHYTHM HR 90 - 110. HD NURSE AT BEDSIDE, ATIVAN GIVEN PRIOR TO HD PER FAMILY REQUEST. GTF NEPRO @30mL/HR, NO RESIDUAL NOTED. PLACEMENT VERIFIED VIA AUSCULTATION. L FEMORAL TLC DRESSING C/D/I, PATENT. R ARM NOT USED FOR DRAWS OR BP. WOUND CARE COMPLETED, PATIENT TURNED Q2HR. PATIENT NOTED TO HAVE FEVERS THROUGHOUT SHIFT. TYLENOL GIVEN. SEE DOCUMENTATION FOR DETAILS. WILL ENDORSE TO GAEL RN FOR MAGY Addendum: 03/09/19 at 1802 by KONG MAKI RN CHARTED IN ERROR, INCORRECT PATIENT. PLEASE DISREGARD.
--- NOTE | 2019-03-09 18:01 | NUR ---
CHARTED IN ERROR, INCORRECT PATIENT. PLEASE DISREGARD.
--- NOTE | 2019-03-09 18:03 | NUR ---
MS RN CLOSING PATIENT REMAINS A/Ox1, ON ROOM AIR, NO RESPIRATORY DISTRESS NOTED. OCCASIONALLY AGITATED, UNABLE TO WORK WITH PHYSICAL THERAPY THIS SHIFT, PULLING AT LINES. BED ALARM ON. SOFT BILATERAL WRIST RESTRAINTS, NO S/S IMPAIRED CIRCULATION OR SENSATION. SEE DOCUMENTATION FOR FURTHER DETAILS. SAUCEDO CATHETER DRAINING CLEAR YELLOW URINE TO GRAVITY. L WRIST IV C/D/I, PATENT, SALINE LOCKED. WOUND CARE COMPLETED, NO BLEEDING NOTED, PATIENT ON ISOLATION FOR MRSA OF WOUND. NO FEVERS NOTED THIS SHIFT. WILL ENDORSE TO NOC RN FOR MAGY
[2019-03-09] MEDS: POTASSIUM CHLORIDE 20 MEQ TAB.PRT.SR PO SCH (19:59)
[2019-03-10 04:00] VITALS: BP 136/69
--- NOTE | 2019-03-10 06:13 | NUR ---
RN NOTES IN BED, SLEEPING WITH NO APPARENT DISTRESS, BREATHING EVEN AND UNLABORED. ROOM AIR WELL TOLERATED. NO PHYSICAL MANIFESTATION OF PAIN OR DISCOMFORT. ALERT AND RESPONSIVE BUT VERY CONFUSED. TALKING TO SELF. ON BILATERAL WRIST RESTRAINTS IN PLACE, REPOSITION EVERY TWO HOURS. KEPT CLEAN AND DRY. WILL ENDORSE TO AM SHIFT FOR CONTINUITY OF CARE
[2019-03-10 06:18] LABS: BASOPHILS % (AUTO) 0.2 % (0.0-2.0); HEMATOCRIT 31 % (33-45); HEMOGLOBIN 10.1 g/dL (11.5-14.8); LYMPHOCYTES # (AUTO) 1.8 /CMM (0.8-4.8); LYMPHOCYTES % (AUTO) 17.5 % (20.0-44.0); MEAN CORPUSCULAR HGB CONC 33 g/dl (31.0-36.0); MEAN CORPUSCULAR VOLUME 90 fL (82-100); MONOCYTES # (AUTO) 1.4 /CMM (0.1-1.30); MONOCYTES % (AUTO) 13.4 % (2.0-12.0); NEUTROPHILS # (AUTO) 6.9 /CMM (1.8-8.9); NEUTROPHILS % (AUTO) 66.9 % (43.0-81.0); PLATELET COUNT (AUTO) 571 /CMM (150-450); RED BLOOD CELL COUNT(AUTO) 3.42 MIL/uL (4.0-5.2); WHITE BLOOD COUNT (AUTO) 10.4 K/uL (4.3-11.0)
[2019-03-10 06:49] LABS: CALCIUM, SERUM 9.3 mg/dL (8.5-10.1); CREATININE 0.7 mg/dL (0.6-1.3); POTASSIUM 3.9 mmol/L (3.5-5.1)
--- NOTE | 2019-03-10 07:10 | NUR ---
MS RN OPENING NOTE RECEIVED REPORT FROM [facility] SHIFT NURSE. PT ASLEEP IN BED, ON ROOM AIR, SATURATING WELL, NO SIGNS OF RESPIRATORY DISTRESS NOTED, RESPIRATIONS EASY AND UNLABORED. IV SITE ON RIGHT HAND G22 INTACT, PATENT, WITH SALINE LOCK. SAUCEDO CATHETER DRAINING CLEAR YELLOW URINE. BED IN LOW POSITION, LOCKED, CALL LIGHT WITHIN REACH.
[2019-03-10] MEDS: PANTOPRAZOLE 40 MG TABLET.DR PO SCH (07:57)
[2019-03-10 08:00] VITALS: BP 119/72
[2019-03-10] MEDS: ASCORBIC ACID 500 MG TABLET PO SCH (08:31)
[2019-03-10] MEDS: DIVALPROEX SODIUM 125 MG TABLET.DR PO SCH (08:31)
[2019-03-10] MEDS: ZINC SULFATE 220 MG CAPSULE PO SCH (08:31)
[2019-03-10] MEDS: ENOXAPARIN SODIUM 40 MG/0.4 ML DISP.SYRIN SQ SCH (08:31)
[2019-03-10] MEDS: CYANOCOBALAMIN 500 MCG TABLET PO SCH (08:32)
[2019-03-10] MEDS: DAKINS QUARTER STRENGTH (0.125%) 480 ML BOTTLE TOP SCH (08:33)
[2019-03-10] MEDS: MEGESTROL ACETATE SUSP 400 MG/10 ML UDC PO SCH (08:33)
[2019-03-10] MEDS: ENSURE ENLIVE 237 ML LIQUID (VANILLA) PO SCH ×2 (08:33→13:12)
[2019-03-10] MEDS: Z GUARD REMEDY 2 OZ OINT TP SCH (08:33)
[2019-03-10] MEDS: OLANZAPINE 5 MG TABLET PO SCH (08:33)
[2019-03-10] MEDS: POTASSIUM CHLORIDE 20 MEQ TAB.PRT.SR PO SCH (08:33)
[2019-03-10] MEDS: CEFEPIME 1 GM in IV D5W 50 ML IV SCH (10:52)
[2019-03-10 12:00] VITALS: BP 124/71
[2019-03-10] MEDS: VANCOMYCIN 1 GM in IV D5W 250 ML IV SCH (16:00)
--- NOTE | 2019-03-10 16:12 | NUR ---
GAVE TELEPHONE REPORT TO JIMMY CHEUNG AT [facility]
--- NOTE | 2019-03-10 16:19 | NUR ---
GAVE REPORT TO NILESH FROM [facility].
--- NOTE | 2019-03-10 16:30 | NUR ---
PT LEFT UNIT VIA GURNEY IN STABLE CONDITION
[2019-03-11] MEDS ORDERED: OLANZAPINE 5 MG TABLET PO SCH (09:00)
== END 2019-03-10 16:20 | DRG 853 ==
LOC: TELE-TD 18:25 → MEDSG1 19:08
PROVIDERS: ADMIT Internal Medicine; ATTEND Internal Medicine
PROC: 0KBP0ZZ Excision of Left Hip Muscle, Open Approach (ICD-10-PCS; principal; 2019-03-06)
PROC: 0KBN0ZZ Excision of Right Hip Muscle, Open Approach (ICD-10-PCS; 2019-03-06)
DX: A41.9 Sepsis, unspecified organism (principal); L89.154 Pressure ulcer of sacral region, stage 4; Z68.1 Body mass index [BMI] 19.9 or less, adult; E44.0 Moderate protein-calorie malnutrition; R62.7 Adult failure to thrive; Z86.73 Personal history of transient ischemic attack (TIA), and cerebral infarction without residual deficits; G40.909 Epilepsy, unspecified, not intractable, without status epilepticus; J45.909 Unspecified asthma, uncomplicated; Z87.440 Personal history of urinary (tract) infections; Z88.2 Allergy status to sulfonamides; D50.9 Iron deficiency anemia, unspecified; D63.8 Anemia in other chronic diseases classified elsewhere; E88.09 Other disorders of plasma-protein metabolism, not elsewhere classified; R63.4 Abnormal weight loss; F29 Unspecified psychosis not due to a substance or known physiological condition; D51.9 Vitamin B12 deficiency anemia, unspecified; F01.50 Vascular dementia, unspecified severity, without behavioral disturbance, psychotic disturbance, mood disturbance, and anxiety; R41.0 Disorientation, unspecified; D72.829 Elevated white blood cell count, unspecified; L08.9 Local infection of the skin and subcutaneous tissue, unspecified; B95.62 Methicillin resistant Staphylococcus aureus infection as the cause of diseases classified elsewhere; I10 Essential (primary) hypertension; Z78.1 Physical restraint status
CPT/HCPCS: 36415; 80048-TC; 80053-TC; 80202-TC; 82247-TC; 82248-TC; 82565-TC; 83605-TC; 85025-TC; 87040-TC; 87070-TC; 87081-TC; 88304-TC; 88312-TC; 92526; 92611-TC; 97112-TC; 97530-TC; A4216; A6253; G0378; J0690; J0692; J1100; J1650; J3370; J3490; J7030; J7050; J7060

== ENCOUNTER 2019-09-21 01:08 | Inpatient (IN) | payer MEDICARE, OTHER ==
[~2019-09-21] VITALS: Ht 157.5 cm; Wt 50.8 kg
--- NOTE | 2019-09-21 01:10 | NUR ---
[facility] FEVERAND TACHYCARDIA. PLACED ON NON REBREATHER SAT 100. PT PLACED IN BED 8. UPON ASSESSMENT PT +FEVER 102.7. PLACED ON 2L NC SAT 90%. LINE INITIATED LF 20G. PT TACHYCARDIC 148. MD AWARE. WILL CONTINUE TO MONITOR. AWAITING ORDERS.
[2019-09-21] MEDS ORDERED: PIPERACILLIN /TAZOBACTAM 3.375 G VIAL IV ONE (01:20)
[2019-09-21] MEDS ORDERED: ACETAMINOPHEN 650 MG/SUPP.RECT RC ONE ×2 (01:21→01:30)
[2019-09-21] MEDS ORDERED: IV NS 0.9% 500 ML IV ONE ×2 (01:30→03:00)
[2019-09-21] MEDS ORDERED: PIPERACILLIN /TAZOBACTAM 3.375 G in IV D5W 50 ML IV ONE (01:30)
[2019-09-21] MEDS ORDERED: VANCOMYCIN 1 GM in IV D5W 250 ML IV ONE (01:30)
--- NOTE | 2019-09-21 01:37 | NUR ---
URINE AND LABS SENT.
[2019-09-21 01:53] LABS: BASOPHILS # (AUTO) 0.1 /CMM (0.0-0.2); BASOPHILS % (AUTO) 0.5 % (0.0-2.0); EOSINOPHILS % (AUTO) 1.8 % (0.0-6.0); HEMATOCRIT 48 % (33-45); HEMOGLOBIN 15.5 g/dL (11.5-14.8); LYMPHOCYTES # (AUTO) 2.7 /CMM (0.8-4.8); LYMPHOCYTES % (AUTO) 16.7 % (20.0-44.0); MEAN CORPUSCULAR HGB CONC 33 g/dl (31.0-36.0); MEAN CORPUSCULAR VOLUME 96 fL (82-100); MONOCYTES # (AUTO) 1.4 /CMM (0.1-1.30); MONOCYTES % (AUTO) 8.6 % (2.0-12.0); NEUTROPHILS # (AUTO) 11.8 /CMM (1.8-8.9); NEUTROPHILS % (AUTO) 72.4 % (43.0-81.0); PLATELET COUNT (AUTO) 332 /CMM (150-450); RED BLOOD CELL COUNT(AUTO) 4.99 MIL/uL (4.0-5.2); WHITE BLOOD COUNT (AUTO) 16.3 K/uL (4.3-11.0)
[2019-09-21 01:57] LABS: CARBON DIOXIDE 24 mmol/L (21-32); CHLORIDE 112 mmol/L (98-107); CREATININE 1.1 mg/dL (0.6-1.3); GLUCOSE 138 mg/dL (74-106); POTASSIUM 4.4 mmol/L (3.5-5.1); SODIUM SERUM 148 mmol/L (136-145); UREA NITROGEN, BLOOD 30 mg/dL (7-18)
--- NOTE | 2019-09-21 02:06 | NUR ---
xray at bedside
[2019-09-21 02:08] LABS: D-DIMER 0.98 mg/L(FEU (0.17-0.50)
[2019-09-21 02:11] LABS: ALANINE AMINOTRANSFERASE 30 U/L (12-78); ALKALINE PHOSPHATASE 64 U/L (46-116); ASPARTATE AMINOTRANSFERASE 26 U/L (15-37); B-TYPE NATRIURETIC PEPTIDE 310 PG/ML (0-125); BILIRUBIN,TOTAL 0.2 mg/dL (0.2-1.0); TOTAL PROTEIN, SERUM 7.8 g/dL (6.4-8.2)
[2019-09-21] MEDS ORDERED: VANCOMYCIN 1 GM VIAL ONE (02:13)
[2019-09-21 02:23] LABS: CREATINE KINASE, TOTAL 126 U/L (26-192); FERRITIN 393 ng/mL (8-388)
[2019-09-21 02:25] LABS: CALCIUM, SERUM 9.2 mg/dL (8.5-10.1)
[2019-09-21 02:26] LABS: C-REACTIVE PROTEIN 11.7 mg/dL (0.0-0.9)
[2019-09-21 02:37] LABS: APPEARANCE,URINE Turbid (CLEAR); BILIRUBIN,URINE SMALL (NEGATIVE); BLOOD, URINE Large Ery/uL (NEGATIVE); COLOR,URINE Red (YELLOW); KETONES,URINE Trace (NEGATIVE); LEUKOCYTE ESTERASE ,URINE Large (NEGATIVE); NITRITE, URINE Positive (NEGATIVE); PROTEIN,URINE >=300 mg/dl (NEGATIVE); UGLUCOSE Negative (NEGATIVE)
--- NOTE | 2019-09-21 02:59 | NUR ---
PT PLACED ON 4L NC SAT 96%
[2019-09-21 03:07] LABS: RBC,URINE TOO NUMEROUS TO COUN /HPF (0-2); WBC,URINE 81-100 /HPF (0-3)
[2019-09-21 03:08] LABS: BACTERIA,URINE Moderate /HPF (None Seen); SQUAMOUS EPITHELIAL CELL,UR Few /HPF (None Seen)
--- NOTE | 2019-09-21 03:15 | NUR ---
DR. HATCH ON THE PHONE WITH DR. CALABRESE
--- NOTE | 2019-09-21 03:36 | NUR ---
REPORT GIVEN TO MARITZA CHEUNG FOR MAGY
--- NOTE | 2019-09-21 03:36 | NUR ---
PT BEING TRANSFERED PER [facility] PROTOCOL
--- NOTE | 2019-09-21 04:05 | NUR ---
RN ADMITTING NOTES RECEIVED PT FROM ER AWAKE A/O X1 NON VERBAL VERY CONTRACTED ON O2 VIA NC @ 4L SPO2 98%, SAFELY TRANSFER FROM [facility] TO BED HEAD TO TOE ASSESSMENT DONE GENERALIZED RASHES NOTED SOME WOUNDS NOTED AND RECORDED PHOTO WAS SECURED, HAVE IV ON RFA #20 PATENT AND FLUSHING WELL, INITIAL ASSESSMENT DONE, DR CALABRESE HER PRIMARY DOCTOR MADE AWARE OF THE ADMISSION WITH ORDERS MADE AND CARRIED OUT PUT ON DROPLET ISOLATION R/O COVID PENDING RESULTS SAFETY MEASURE INITIATED WILL CONT TO MONITOR
[2019-09-21 04:24] LABS: BILIRUBIN,DIRECT 0.1 mg/dL (0.0-0.2)
[2019-09-21] MEDS ORDERED: DOCU-141 PO (04:25)
[2019-09-21] MEDS ORDERED: DIVA500T2 PO (04:25)
[2019-09-21 04:26] VITALS: BP 116/66
[2019-09-21] MEDS ORDERED: FERR325T23 PO (04:28)
[2019-09-21] MEDS ORDERED: NA P133E RC (04:28)
[2019-09-21] MEDS ORDERED: PANT40TA4 PO (04:28)
[2019-09-21] MEDS ORDERED: OLAN2.5T3 PO (04:28)
[2019-09-21] MEDS ORDERED: CYAN250014 PO (04:28)
[2019-09-21] MEDS ORDERED: ONDANSETRON HCL/PF 4 MG/2 ML VIAL IV PRN (05:30)
[2019-09-21] MEDS ORDERED: ACETAMINOPHEN ES 500 MG TABLET PO PRN (05:30)
[2019-09-21] MEDS: IV NS 0.9% 1,000 ML IV PRN (06:17)
[2019-09-21] MEDS ORDERED: AZITHROMYCIN 500 MG VIAL ONE (06:25)
[2019-09-21] MEDS: AZITHROMYCIN 500 MG in IV D5W 250 ML IV SCH (06:35)
--- NOTE | 2019-09-21 07:22 | NUR ---
RN CLOSING NOTES PT SLEEPING ON BED WITH IVF OF NS 70ML/HR INFUSING WELL, ON O2 VIA NC @ 4L, SPO2 98%, NO SIGN AND SYMPTOMS OF DISTRESS, ALL NEEDS ATTENDED DROPLET ISOLATION MAINTAINED SAFETY MEASURE MAINTAINED WILL ENDORSE TO AM SHIFT NURSE
--- NOTE | 2019-09-21 07:30 | NUR ---
RN NOTE RECEIVED PATIENT RESTING IN BED. NO ACUTE DISTRESS NOTED. A&OX1, NONVERBAL, PATIENT IS CONFUSED. ON 4L NC, SATURATING WELL AT 98%. NO SOB NOTED. BREATHING EVEN AND UNLABORED. ON TELE MONITOR WITH SR IN 90'S. ON BEDREST, PATIENT WILL BE REPOSITIONED PER PROTOCOL. R. FOREARM 20GAUGE NS RUNNING AT 70ML/HR. IV SITE INTACT, PATENT, AND FLUSHED WELL. NO S/S OF INFECTION NOTED. SAFETY MAINTAINED. CALL LIGHT WITHIN REACH. WILL CONTINUE TO ROUND AND MONITOR.
[2019-09-21 08:00] VITALS: BP 107/57
[2019-09-21] MEDS ORDERED: MAGN400O6 PO (08:06)
[2019-09-21] MEDS ORDERED: ACET-868 PO (08:06)
[2019-09-21] MEDS ORDERED: POTA20TA83 PO (08:06)
[2019-09-21] MEDS ORDERED: ASCO-352 PO (08:06)
[2019-09-21] MEDS ORDERED: MEGE400O4 PO (08:06)
[2019-09-21] MEDS ORDERED: BISA10SU11 RC (08:06)
[2019-09-21] MEDS ORDERED: TYL2T PO (08:06)
[2019-09-21] MEDS ORDERED: NA PHOS,M-B/NA PHOS,DI-BA 1 EA ENEMA RC PRN (09:00)
[2019-09-21] MEDS ORDERED: BISACODYL SUPP (10 MG) 10 MG/SUPP.RECT SUPP.RECT RC PRN (09:00)
[2019-09-21] MEDS ORDERED: ACETAMINOPHEN 325 MG TABLET PO PRN (09:00)
[2019-09-21] MEDS ORDERED: CYANOCOBALAMIN 500 MCG TABLET PO SCH (09:00)
--- NOTE | 2019-09-21 09:30 | NUR ---
RN NOTE GOT CALL FROM PHARMACY, MED-RECON HAS TO BE REVIEWED BY . SPOKE TO DR. CALABRESE. MD IS AWARE, WILL REVIEW MED-RECON. NEW ORDERS RECEIVED FROM MD. WILL FOLLOW. SAFETY MAINTAINED. CALL LIGHT WITHIN REACH.
[2019-09-21] MEDS: PANTOPRAZOLE 40 MG TABLET.DR PO SCH (09:39)
[2019-09-21] MEDS: DIVALPROEX SODIUM 250 MG TABLET.DR PO SCH ×2 (09:41→16:06)
[2019-09-21] MEDS: FERROUS SULFATE (325 MG) 325 MG/TAB TABLET PO SCH ×2 (09:41→16:06)
[2019-09-21] MEDS: HYDROXYCHLOROQUINE 200 MG TABLET PO SCH ×2 (09:41→16:05)
[2019-09-21] MEDS: ACETAMINOPHEN 650 MG/20.3 ML UDC PO SCH (09:41)
[2019-09-21] MEDS: MEROPENEM 1 G in IV NS 0.9% 100 ML IV SCH ×2 (09:42→20:04)
[2019-09-21] MEDS: ENOXAPARIN SODIUM 40 MG/0.4 ML DISP.SYRIN SQ SCH (09:42)
[2019-09-21 12:00] VITALS: BP 102/67
[2019-09-21] MEDS ORDERED: FEE PK DOSING 1 MIN EA MC ONE (12:03)
[2019-09-21] MEDS: ENSURE ENLIVE 237 ML LIQUID (VANILLA) PO SCH ×2 (12:18→17:51)
[2019-09-21] MEDS: VANCOMYCIN 500 MG in IV D5W 100 ML IV SCH (14:01)
[2019-09-21 16:00] VITALS: BP 112/63
[2019-09-21] MEDS: ACETAMINOPHEN 325 MG TABLET PO PRN (16:06)
--- NOTE | 2019-09-21 16:55 | NUR ---
RN NOTE PATIENT TEMPERATURE ELEVATED AT 100.4, MD NOTIFIED, TYLENOL 650MG PRN GIVEN ORDERED. SAFETY MAINTAINED, CALL LIGHT WITHIN REACH, WILL CONTINUE TO MONITOR.
[2019-09-21] MEDS: CYANOCOBALAMIN 500 MCG TABLET PO SCH (17:48)
[2019-09-21] MEDS: DOCUSATE SODIUM 100 MG CAPSULE PO SCH (17:48)
[2019-09-21] MEDS: ASCORBIC ACID 500 MG TABLET PO SCH (17:48)
--- NOTE | 2019-09-21 19:21 | NUR ---
RN CLOSING NOTES PATIENT REMAINED IN STABLE CONDITION DURING MY SHIFT. NO ACUTE CHANGES TO PATIENT CONDITION DURING MY SHIFT. ALL SCHEDULED MEDS GIVEN ON TIME. REMAINED ON OXYGEN VIA NC, TOLERATING WELL. HAD A FEVER OF 100.4, MD WAS NOTIFIED, TYLENOL 650MG PO WAS GIVEN. SAFETY MAINTAINED, CALL LIGHT WITHIN REACH, ENDORSED PATIENT TO PM NURSE FOR CONTINUITY OF CARE.
--- NOTE | 2019-09-21 19:40 | NUR ---
CHILDREN'S MINISTRY DIRECTOR NOTES, RECEIVED PATIENT IN BED, A/O TO SELF, ON O2 4LPM VIA NC, BREATHING EVEN AND UNLABORED, NO SOB/ NO ACUTE DISTRESS NOTED, NONVERBAL, WITH O2 SAT LEVEL FLUCTUATING 93-95%, NSR TELE MONITOR WITH SR IN 80S AT THIS TIME, PIV ACCESS IN RIGHT FOREARM 20GAUGE, NS INFUSING AT 70ML/HR, PATIENT TOLERATED WELL, PATENT AND INTACT, ALL SAFETY PRECAUTIONS IN PLACED, CALL LIGHT WITHIN REACH, WILL CONTINUE TO MONITOR CLOSELY.
[2019-09-21 20:00] VITALS: BP 134/79
[2019-09-21] MEDS ORDERED: MAGNESIUM HYDROXIDE 30 ML UDC PO PRN (22:00)
[2019-09-22] VITALS: BP 123/75
[2019-09-22] MEDS: VANCOMYCIN 500 MG in IV D5W 100 ML IV SCH ×2 (02:23→16:32)
[2019-09-22] MEDS: IV NS 0.9% 1,000 ML IV PRN (02:23)
[2019-09-22 04:00] VITALS: BP 120/69
[2019-09-22] MEDS: AZITHROMYCIN 500 MG in IV D5W 250 ML IV SCH (05:45)
--- NOTE | 2019-09-22 06:34 | NUR ---
MIDDLE SCHOOL VOLLEYBALL COACH NOTES, PATIENT IN BED, A/O TO SELF, ON O2 4LPM VIA NC, BREATHING EVEN AND UNLABORED, NO SOB/ NO ACUTE DISTRESS NOTED, NONVERBAL, WITH O2 SAT LEVEL FLUCTUATING 93-97%, NSR TELE MONITOR WITH SR WITH HR MOSTLY 80S THROUGHOUT THE NIGHT, ALL SAFETY PRECAUTIONS IN PLACED, NO SIGNIFICANT CHANGE IN CONDITION DURING THE NIGHT,,CALL LIGHT WITHIN REACH, WILL ENDORSE CONTINUITY OF CARE TO ONCOMING NURSE.
[2019-09-22 06:39] LABS: BASOPHILS % (AUTO) 0.2 % (0.0-2.0); HEMATOCRIT 35 % (33-45); HEMOGLOBIN 11.1 g/dL (11.5-14.8); LYMPHOCYTES # (AUTO) 1.9 /CMM (0.8-4.8); LYMPHOCYTES % (AUTO) 12.4 % (20.0-44.0); MEAN CORPUSCULAR HGB CONC 32 g/dl (31.0-36.0); MEAN CORPUSCULAR VOLUME 96 fL (82-100); MONOCYTES # (AUTO) 0.5 /CMM (0.1-1.30); MONOCYTES % (AUTO) 3.2 % (2.0-12.0); NEUTROPHILS # (AUTO) 12.9 /CMM (1.8-8.9); NEUTROPHILS % (AUTO) 83.2 % (43.0-81.0); PLATELET COUNT (AUTO) 231 /CMM (150-450); RED BLOOD CELL COUNT(AUTO) 3.61 MIL/uL (4.0-5.2); WHITE BLOOD COUNT (AUTO) 15.6 K/uL (4.3-11.0)
[2019-09-22 06:57] LABS: ALBUMIN 2.1 g/dL (3.4-5.0); BILIRUBIN,TOTAL 0.2 mg/dL (0.2-1.0); CALCIUM, SERUM 8.1 mg/dL (8.5-10.1); CREATININE 0.8 mg/dL (0.6-1.3); POTASSIUM 3.6 mmol/L (3.5-5.1); TOTAL PROTEIN, SERUM 5.8 g/dL (6.4-8.2)
[2019-09-22 07:23] LABS: THYROID STIMULATING HORMONE 1.784 uIU/mL (0.358-3.74)
--- NOTE | 2019-09-22 07:30 | NUR ---
RN OPENING NOTE Received patient asleep in bed no signs of distress. Appears calm and relaxed. HOB elevated. Pt on NC 4L tolerating well. Patient is AO x1. Tele reading SR 90s. Patient is noted with generalized rashes and DTI on L Heel and L ruiz. With FRA 20g running NS @70ml/hr. No signs of pain or discomfort. Safety measures reinforced. Siderails up x2. Call light within reach. Bed locked and on lowest position. Will cont to monitor.
[2019-09-22 08:00] VITALS: BP 84/45
[2019-09-22] MEDS: ACETAMINOPHEN 650 MG/20.3 ML UDC PO SCH (08:10)
[2019-09-22] MEDS: HYDROXYCHLOROQUINE 200 MG TABLET PO SCH (08:10)
[2019-09-22] MEDS: ENOXAPARIN SODIUM 40 MG/0.4 ML DISP.SYRIN SQ SCH (08:11)
[2019-09-22] MEDS: DIVALPROEX SODIUM 250 MG TABLET.DR PO SCH ×2 (08:12→16:33)
[2019-09-22] MEDS: PANTOPRAZOLE 40 MG TABLET.DR PO SCH (08:12)
[2019-09-22] MEDS: FERROUS SULFATE (325 MG) 325 MG/TAB TABLET PO SCH ×2 (08:12→16:33)
[2019-09-22] MEDS: MEROPENEM 1 G in IV NS 0.9% 100 ML IV SCH ×2 (08:12→21:46)
[2019-09-22] MEDS: ENSURE ENLIVE 237 ML LIQUID (VANILLA) PO SCH ×3 (08:12→16:33)
[2019-09-22] MEDS: CHOLECALCIFEROL 1,000 UNIT TABLET (VIT D3) PO SCH (10:14)
[2019-09-22] MEDS: ZINC SULFATE 220 MG CAPSULE PO SCH (10:16)
[2019-09-22] MEDS: IV D5/0.45 NACL 1,000 ML IV PRN (10:27)
[2019-09-22 12:00] VITALS: BP 96/46
[2019-09-22] MEDS ORDERED: POTASSIUM CHLORIDE 20 MEQ TAB.PRT.SR PO SCH (14:00)
[2019-09-22 16:00] VITALS: BP 129/77
[2019-09-22] MEDS: CYANOCOBALAMIN 500 MCG TABLET PO SCH (16:32)
[2019-09-22] MEDS: ASCORBIC ACID 500 MG TABLET PO SCH (16:32)
[2019-09-22] MEDS: DOCUSATE SODIUM 100 MG CAPSULE PO SCH (16:33)
--- NOTE | 2019-09-22 18:32 | NUR ---
RN CLOSING NOTE Patient in bed asleep. No signs of distress. On NC 4L 98%. Patient is AO x1 mumbles words only. Patient is noted with decreased appetite. Encouraged to eat and drink more. Ensure given as ordered. Patient has L hand 22g flushed well. No signs of pain or discomfort. Continue on antibiotics tolerating well no signs of adverse reaction. Covid results came back positive. Turned and repositioned q2h. Kept clean and dry. All due meds given. Vital signs within normal limits. Safety measure reinforced. Bed locked and on lowest position. Call light within reach. Siderails up x2. Will endorse to lieutenant shift supervisor nurse for graciela.
--- NOTE | 2019-09-22 19:05 | NUR ---
RN OPENING NOTE RECEIVED PATIENT IS IN BED RESTING, HON ELEVATED. BREATHING EVEN AND NON LABORED NO SOB NOTED. A&O X 1. NONVERBAL. ON ISOLATION FOR POSITIVE COVID-19. ON 4 L O2 VIA NC. PATIENT IS CONTRACTED. IN NO APPARENT DISTRESS NOTED AT THIS TIME. BED IS LOWERED TO LOW POSITION FOR SAFETY. WILL CONTINUE TO MONITOR.
[2019-09-22 20:00] VITALS: BP 138/53
[2019-09-22] MEDS: ACETAMINOPHEN 325 MG TABLET PO PRN (22:37)
[2019-09-23] VITALS: BP 101/58
[2019-09-23] MEDS: VANCOMYCIN 500 MG in IV D5W 100 ML IV SCH ×3 (02:13→19:21)
[2019-09-23 04:00] VITALS: BP 118/71
[2019-09-23] MEDS: AZITHROMYCIN 500 MG in IV D5W 250 ML IV SCH (05:05)
[2019-09-23] MEDS: IV D5/0.45 NACL 1,000 ML IV PRN (05:07)
--- NOTE | 2019-09-23 06:47 | NUR ---
RN CLOSING NOTE PATIENT REMAINED STABLE THROUGHOUT THE NIGHT. ALL DUE MEDS GIVEN AND TOLERATED WELL. ALL NEEDS ATTENDED AND MET. NO SIGNIFICANT CHANGES NOTED. WILL ENDORSE TO AM SHIFT RN FOR CONTINUATION OF CARE.
[2019-09-23 06:53] LABS: BASOPHILS % (AUTO) 0.3 % (0.0-2.0); EOSINOPHILS % (AUTO) 1.1 % (0.0-6.0); HEMATOCRIT 37 % (33-45); HEMOGLOBIN 11.7 g/dL (11.5-14.8); LYMPHOCYTES # (AUTO) 2.1 /CMM (0.8-4.8); LYMPHOCYTES % (AUTO) 27.5 % (20.0-44.0); MEAN CORPUSCULAR HGB CONC 32 g/dl (31.0-36.0); MEAN CORPUSCULAR VOLUME 96 fL (82-100); MONOCYTES # (AUTO) 0.4 /CMM (0.1-1.30); MONOCYTES % (AUTO) 5.9 % (2.0-12.0); NEUTROPHILS # (AUTO) 4.9 /CMM (1.8-8.9); NEUTROPHILS % (AUTO) 65.2 % (43.0-81.0); PLATELET COUNT (AUTO) 225 /CMM (150-450); RED BLOOD CELL COUNT(AUTO) 3.82 MIL/uL (4.0-5.2); WHITE BLOOD COUNT (AUTO) 7.5 K/uL (4.3-11.0)
--- NOTE | 2019-09-23 07:00 | NUR ---
RN TELE1 PATIENT LAYING IN BED AWAKE. PATIENT ON NC WITH 4LMP A MIN. PATIENT SATURATING @ 97 PERCENT, ON EXTERNAL MONITOR ON NSR, 70'S PATIENT IS CONTRACTED, HAS SACRAL, L ALBA DTI. L HEEL DTI. L FA 22# INTACT AND PATENT. BED LOCKED AND LOWEST POSITION CALL LIGHT WITH IN REACH ALL SAFETY MEASURE IMPLEMENTED PER HOSPITAL POLICY.
[2019-09-23 07:14] LABS: BILIRUBIN,TOTAL 0.2 mg/dL (0.2-1.0); CALCIUM, SERUM 7.8 mg/dL (8.5-10.1); CREATININE 0.8 mg/dL (0.6-1.3); MAGNESIUM 1.9 mg/dL (1.8-2.4); PHOSPHORUS 2.1 mg/dL (2.5-4.9); POTASSIUM 3.7 mmol/L (3.5-5.1); TOTAL PROTEIN, SERUM 5.7 g/dL (6.4-8.2)
[2019-09-23 08:00] VITALS: BP_SYST 104; BP_SYST 122; BP_DIAS 57; BP_DIAS 59
[2019-09-23] MEDS: MEROPENEM 1 G in IV NS 0.9% 100 ML IV SCH ×2 (08:16→20:02)
[2019-09-23] MEDS: DIVALPROEX SODIUM 250 MG TABLET.DR PO SCH ×2 (08:16→17:49)
[2019-09-23] MEDS: HYDROXYCHLOROQUINE 200 MG TABLET PO SCH (08:16)
[2019-09-23] MEDS: ACETAMINOPHEN 650 MG/20.3 ML UDC PO SCH (08:16)
[2019-09-23] MEDS: FERROUS SULFATE (325 MG) 325 MG/TAB TABLET PO SCH ×2 (08:16→17:51)
[2019-09-23] MEDS: PANTOPRAZOLE 40 MG TABLET.DR PO SCH (08:16)
[2019-09-23] MEDS: ZINC SULFATE 220 MG CAPSULE PO SCH (08:16)
[2019-09-23] MEDS: CHOLECALCIFEROL 1,000 UNIT TABLET (VIT D3) PO SCH (08:16)
[2019-09-23] MEDS: ENOXAPARIN SODIUM 40 MG/0.4 ML DISP.SYRIN SQ SCH (08:19)
[2019-09-23] MEDS: ENSURE ENLIVE 237 ML LIQUID (VANILLA) PO SCH ×3 (09:02→17:50)
--- NOTE | 2019-09-23 10:08 | NUR ---
WOUND CARE CONSULT: REVIEWED ADMISSION DOCUMENTATION INCLUDING PHOTOS AND SPOKE WITH NURSING STAFF. ADMISSION PHOTOS SHOW LEFT LOWER LEG DRY WOUND, BACK DISCOLORATION, SACRAL INTACT DEEP TISSUE INJURY WITH SCARRING, LEFT UPPER ARM DRY SCAB AND RT HEEL INTACT DEEP TISSUE INJURY, ALL PRESENT ON ADMISSION. RECOMMENDATIONS MADE FOR SKIN PROTECTION AND WOUND CARE. DISCUSSED WITH NURSING STAFF. 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 MD IN AGREEMENT WITH PLAN OF CARE.
[2019-09-23] MEDS ORDERED: Z GUARD REMEDY 2 OZ OINT TP PRN (10:30)
[2019-09-23] MEDS: MEGESTROL ACETATE SUSP 400 MG/10 ML UDC PO SCH ×2 (11:25→17:49)
[2019-09-23] MEDS: Z GUARD REMEDY 2 OZ OINT TP SCH (11:26)
[2019-09-23 12:00] VITALS: BP 122/57
[2019-09-23] MEDS ORDERED: POTASSIUM PHOSPHATE MM 15 MMOL in IV NS 0.9% 250 ML IV SCH (12:00)
[2019-09-23] MEDS: POTASSIUM PHOSPHATE MM 7.5 MMOL in IV NS 0.9% 100 ML IV SCH ×2 (13:53→16:38)
[2019-09-23 16:00] VITALS: BP 102/54
[2019-09-23] MEDS: CYANOCOBALAMIN 500 MCG TABLET PO SCH (17:49)
[2019-09-23] MEDS: ASCORBIC ACID 500 MG TABLET PO SCH (17:49)
[2019-09-23] MEDS: DOCUSATE SODIUM 100 MG CAPSULE PO SCH (17:49)
--- NOTE | 2019-09-23 18:27 | NUR ---
RN TELE1 CLOSING NO CHANGE IN CONDITION AT THIS TIME, PATIENT IS RESTING IN BED COMFORTABLY ASLEEP BUT EASILY WOKEN, PATIENT IS SATURATING WELL NO ACUTE RESPIRATORY DISTRESS AT THIS TIME. NO PAIN. INCIDENT REPORTED COMPLETE FOR R FOOT WOUND AND PICTURES DOCTOR MADE AWARE. BED LOCKED AND LOWEST POSITION CALL LIGHT WITH IN REACH ALL SAFETY MEASURE IMPLENTED PER HOSPITAL POLICY
[2019-09-23] MEDS: ACETAMINOPHEN 325 MG TABLET PO PRN (19:55)
[2019-09-23 20:00] VITALS: BP 110/66
[2019-09-23] MEDS: MUPIROCIN OINT 2% 22 GM TUBE SCH (20:00)
[2019-09-24] VITALS: BP 102/64
[2019-09-24] MEDS: VANCOMYCIN 500 MG in IV D5W 100 ML IV SCH ×3 (02:11→18:36)
[2019-09-24 04:00] VITALS: BP 98/49
[2019-09-24 06:34] LABS: BASOPHILS % (AUTO) 0.5 % (0.0-2.0); EOSINOPHILS % (AUTO) 3.7 % (0.0-6.0); HEMATOCRIT 38 % (33-45); HEMOGLOBIN 12.3 g/dL (11.5-14.8); LYMPHOCYTES # (AUTO) 3.1 /CMM (0.8-4.8); MEAN CORPUSCULAR HGB CONC 32 g/dl (31.0-36.0); MEAN CORPUSCULAR VOLUME 94 fL (82-100); MONOCYTES # (AUTO) 0.5 /CMM (0.1-1.30); MONOCYTES % (AUTO) 5.7 % (2.0-12.0); NEUTROPHILS # (AUTO) 4.1 /CMM (1.8-8.9); NEUTROPHILS % (AUTO) 51.1 % (43.0-81.0); PLATELET COUNT (AUTO) 246 /CMM (150-450); RED BLOOD CELL COUNT(AUTO) 4.05 MIL/uL (4.0-5.2)
[2019-09-24 07:14] LABS: CALCIUM, SERUM 8.4 mg/dL (8.5-10.1); CREATININE 0.7 mg/dL (0.6-1.3); PHOSPHORUS 2.3 mg/dL (2.5-4.9); POTASSIUM 3.8 mmol/L (3.5-5.1)
--- NOTE | 2019-09-24 07:20 | NUR ---
MS RN RECEIVED ON BED, AWAKE, RESPONSIVE,02 4 LITERS,SATURATING 94-95%,NOT IN DISTRESS, RESPIRATIONS UNLABORED,ABDOMEN SOFT,POSITIVE BOWEL SOUNDS,WILL MONIOTR PATIENT'S CONDITION.
[2019-09-24 08:00] VITALS: BP 115/64
[2019-09-24] MEDS: ENSURE ENLIVE 237 ML LIQUID (VANILLA) PO SCH ×3 (09:00→17:27)
--- NOTE | 2019-09-24 09:50 | NUR ---
MS RN BREAKFAST SERVED,DUE MED GIVEN,TOLERATED WELL. ALL NEEDS ATTENDED.
[2019-09-24] MEDS: ZINC SULFATE 220 MG CAPSULE PO SCH (09:54)
[2019-09-24] MEDS: MEGESTROL ACETATE SUSP 400 MG/10 ML UDC PO SCH ×2 (09:54→17:32)
[2019-09-24] MEDS: AZITHROMYCIN 250 MG TABLET PO SCH (09:54)
[2019-09-24] MEDS: CHOLECALCIFEROL 1,000 UNIT TABLET (VIT D3) PO SCH (09:55)
[2019-09-24] MEDS: FERROUS SULFATE (325 MG) 325 MG/TAB TABLET PO SCH ×2 (09:55→17:33)
[2019-09-24] MEDS: DIVALPROEX SODIUM 250 MG TABLET.DR PO SCH ×2 (09:55→17:32)
[2019-09-24] MEDS: HYDROXYCHLOROQUINE 200 MG TABLET PO SCH (09:55)
[2019-09-24] MEDS: PANTOPRAZOLE 40 MG TABLET.DR PO SCH (09:57)
[2019-09-24] MEDS: ACETAMINOPHEN 650 MG/20.3 ML UDC PO SCH (09:59)
[2019-09-24] MEDS: MEROPENEM 1 G in IV NS 0.9% 100 ML IV SCH ×2 (10:01→22:46)
[2019-09-24] MEDS: ENOXAPARIN SODIUM 40 MG/0.4 ML DISP.SYRIN SQ SCH (10:09)
--- NOTE | 2019-09-24 10:36 | NUR ---
WOUND CARE:REVIEWED PHOTO DOCUMENTATION AND CHART AND SPOKE WITH CREDIT COLLECTIONS MANAGER. PT HAS SKIN TEAR TO RT FOOT. CREDIT COLLECTIONS MANAGER DISCUSSED WITH MD. RECOMMENDATIONS MADE FOR SKIN PROTECTION AND WOUND CARE DISCUSSED WITH NURSING STAFF. FIRST STEP LOW AIRLOSS MATTRESS ON ORDER. WILL SEE PRN. IN AGREEMENT WITH PLAN OF CARE.
--- NOTE | 2019-09-24 11:03 | NUR ---
INSTRUCTOR DECORATING NOTES RECEIVED REPORT FROM [place], FOR MAGY OF CARE.
--- NOTE | 2019-09-24 11:48 | NUR ---
PRODUCTION BORING MACHINE OPERATOR received a call from TALIA [place] Donaldson stating the Dr. Tamez is requesting to speak with family. SHAARA consulted with case advocate Janna. Janna called Talon at [facility] where pt resides to inquire if pt has family. Per Talon, pt does not have any family and pt. was not accepted by public guardian's office. SAHARA and principal product manager updated [place] Donaldson with aforementioned information.
[2019-09-24 12:00] VITALS: BP 106/56
--- NOTE | 2019-09-24 12:00 | NUR ---
MS RN ON BED, NO DISTRESS NOTED, V/S WNL, REPORT GIVEN TO ARTEMIO CHEUNG, FOR CONTINUITY OF CARE.
[2019-09-24] MEDS: POTASSIUM PHOSPHATE MM 5 MMOL in IV NS 0.9% 100 ML IV SCH ×2 (12:08→14:36)
[2019-09-24] MEDS: Z GUARD REMEDY 2 OZ OINT TP SCH (12:11)
[2019-09-24] MEDS: MUPIROCIN OINT 2% 22 GM TUBE SCH ×2 (12:12→21:00)
--- NOTE | 2019-09-24 14:44 | NUR ---
dr. del rio notified that per leather case finisher and social scientist patient has no family and no conservator.per dr. del rio he will observe patient a day or two and will decide if need bioethics.
--- NOTE | 2019-09-24 14:54 | NUR ---
SAHARA recived a call from TALIAChandni Donaldson stating that she informed Dr. Tamez that pt has no family and Dr. Tamez will observe patient a day or two and will decide if pt need bioethics.
[2019-09-24 16:00] VITALS: BP 100/60
[2019-09-24] MEDS: DOCUSATE SODIUM 100 MG CAPSULE PO SCH (17:32)
[2019-09-24] MEDS: ASCORBIC ACID 500 MG TABLET PO SCH (17:33)
[2019-09-24] MEDS: CYANOCOBALAMIN 500 MCG TABLET PO SCH (17:33)
--- NOTE | 2019-09-24 19:35 | NUR ---
RN OPENING NOTES RECEIVED REPORT FROM LESLEY ULLOA. PER REPORT Pt IS A/OX1. PER REPORT Pt HAS NO FAMILY TO CONTACT, AND Pt HAS BEEN HAVING POOR PO INTAKE; PER SKIPCOCORWIN RN TO FOLLOW UP FOR POSSIBLE BIOETHICS COMMITTEE WITH FOLLOWING [employer]SCOFT RN THE NEXT DAY. FOUND Pt ASLEEP IN BED. NO S/S OF ACUTE DISTRESS OR SOB NOTED. ON TELE MONITOR WITH SR. IV ACCESS ON LFA #22G IVF D5 1/2NS @40ML/HR. SAFETY MEASURES IN PLACE. BED LOW, LOCKED, HOB ELEVATED, SIDE RAILS UP, CALL LIGHT AND BEDSIDE TABLE WITHIN REACH. WILL CONTINUE TO MONITOR Pt's CONDITION AND SAFETY THROUGHOUT THE NIGHT.
--- NOTE | 2019-09-24 19:36 | NUR ---
BMET CLOSING NOTE PATIENT RESTING COMFORTABLY, AOX 1,NONVERBAL, UNABLE TO MAKE NEED KNOWN, CONFUSED, ON 4 L O2 NASAL CANULA, NOT IN ANY DISTRESS, NO SOB, SINUS RHYTHM HR 81, NO SIGNS OF PAIN, LFA G 22 GENTLE HYDRATION ONGOING, SITE CLEAR, TURNED AND REPOSITIONED Q2 HOURS, PM CARE DONE. ALL NEEDS MET AT THIS TIME. ALL DUE MEDS GIVEN. CALL LIGHT WITHIN REACH. SAFETY MEASURES IN PLACE, ENDORSED TO NEXT SHIFT FOR MAGY.
[2019-09-24 20:30] VITALS: BP 114/65
[2019-09-25] VITALS (7 sets, daily range): BP systolic 102–155; BP diastolic 52–89
[2019-09-25] MEDS: VANCOMYCIN 500 MG in IV D5W 100 ML IV SCH ×3 (03:11→18:45)
[2019-09-25] MEDS: IV D5/0.45 NACL 1,000 ML IV PRN (04:40)
--- NOTE | 2019-09-25 06:55 | NUR ---
RN CLOSING NOTES NO SIGNIFICANT CHANGES IN Pt's CONDITION. ALL NEEDS MET AND ATTENDED TO. Pt IS RESTING COMFORTABLY IN BED. NO S/S OF ACUTE DISTRESS OR SOB NOTED DURING THE NIGHT. ON 4L NC SATTING @97%. SAFETY MEASURES IN PLACE. BED LOW, LOCKED, HOB ELEVATED, SIDE RAILS UP, BED ALARM ON. WILL ENDORSE TO DAYSHIFT RN FOR Pt's MAGY.
[2019-09-25 07:37] LABS: CALCIUM, SERUM 8.3 mg/dL (8.5-10.1); CREATININE 0.8 mg/dL (0.6-1.3); PHOSPHORUS 2.2 mg/dL (2.5-4.9); POTASSIUM 3.8 mmol/L (3.5-5.1)
[2019-09-25 08:58] LABS: BASOPHILS % (AUTO) 0.3 % (0.0-2.0); HEMATOCRIT 38 % (33-45); HEMOGLOBIN 12.3 g/dL (11.5-14.8); LYMPHOCYTES # (AUTO) 2.7 /CMM (0.8-4.8); LYMPHOCYTES % (AUTO) 41.2 % (20.0-44.0); MEAN CORPUSCULAR HGB CONC 33 g/dl (31.0-36.0); MEAN CORPUSCULAR VOLUME 94 fL (82-100); MONOCYTES # (AUTO) 0.5 /CMM (0.1-1.30); MONOCYTES % (AUTO) 7.1 % (2.0-12.0); NEUTROPHILS # (AUTO) 3.2 /CMM (1.8-8.9); NEUTROPHILS % (AUTO) 48.4 % (43.0-81.0); PLATELET COUNT (AUTO) 250 /CMM (150-450); RED BLOOD CELL COUNT(AUTO) 4.03 MIL/uL (4.0-5.2); WHITE BLOOD COUNT (AUTO) 6.6 K/uL (4.3-11.0)
[2019-09-25] MEDS: DIVALPROEX SODIUM 250 MG TABLET.DR PO SCH ×2 (09:20→17:28)
[2019-09-25] MEDS: FERROUS SULFATE (325 MG) 325 MG/TAB TABLET PO SCH ×2 (09:20→17:28)
[2019-09-25] MEDS: AZITHROMYCIN 250 MG TABLET PO SCH (09:21)
[2019-09-25] MEDS: ZINC SULFATE 220 MG CAPSULE PO SCH (09:21)
[2019-09-25] MEDS: MEGESTROL ACETATE SUSP 400 MG/10 ML UDC PO SCH ×2 (09:21→17:28)
[2019-09-25] MEDS: HYDROXYCHLOROQUINE 200 MG TABLET PO SCH (09:21)
[2019-09-25] MEDS: PANTOPRAZOLE 40 MG TABLET.DR PO SCH (09:21)
[2019-09-25] MEDS: ACETAMINOPHEN 650 MG/20.3 ML UDC PO SCH (09:21)
[2019-09-25] MEDS: CYANOCOBALAMIN 500 MCG TABLET PO SCH (09:21)
[2019-09-25] MEDS: MEROPENEM 1 G in IV NS 0.9% 100 ML IV SCH ×2 (09:22→21:23)
[2019-09-25] MEDS: ENOXAPARIN SODIUM 40 MG/0.4 ML DISP.SYRIN SQ SCH (09:25)
[2019-09-25] MEDS: MUPIROCIN OINT 2% 22 GM TUBE SCH ×2 (09:26→21:23)
[2019-09-25] MEDS: ENSURE ENLIVE 237 ML LIQUID (VANILLA) PO SCH ×3 (09:26→17:00)
[2019-09-25] MEDS: Z GUARD REMEDY 2 OZ OINT TP SCH (09:26)
[2019-09-25] MEDS: CHOLECALCIFEROL 1,000 UNIT TABLET (VIT D3) PO SCH (09:29)
[2019-09-25] MEDS ORDERED: POTASSIUM PHOSPHATE MM 15 MMOL in IV NS 0.9% 250 ML IV SCH (12:30)
[2019-09-25] MEDS: POTASSIUM PHOSPHATE MM 7.5 MMOL in IV NS 0.9% 100 ML IV SCH ×2 (13:48→16:00)
[2019-09-25] MEDS: DOCUSATE SODIUM 100 MG CAPSULE PO SCH (17:28)
[2019-09-25] MEDS: ASCORBIC ACID 500 MG TABLET PO SCH (17:28)
--- NOTE | 2019-09-25 18:45 | NUR ---
Patient removal of intravenous site. Order for midline insertion per Attending MD Tamez. Call to notify supervisor tank house. Unable to infuse vancomycin, potassium phos. during this shift. Timothy Caceres RN
--- NOTE | 2019-09-25 18:52 | NUR ---
Handoff with night team registered nurse. Timothy Caceres RN
[2019-09-26] VITALS: BP 93/48
[2019-09-26] MEDS: VANCOMYCIN 500 MG in IV D5W 100 ML IV SCH ×3 (03:35→19:49)
[2019-09-26 04:00] VITALS: BP 97/40
--- NOTE | 2019-09-26 06:52 | NUR ---
INFORMED FROM [employer], PATIENTS HR HAS BEEN DROPPING TO THE HIGH 30'S WITH A R-R MEASUREMENT OF 3.24 SEC. WILL ADVISE MORNING NURSE TO CONTINUE TO MONITOR PATIENT.
[2019-09-26 07:31] LABS: CALCIUM, SERUM 7.7 mg/dL (8.5-10.1); CREATININE 0.7 mg/dL (0.6-1.3); POTASSIUM 3.3 mmol/L (3.5-5.1)
[2019-09-26 08:00] VITALS: BP 143/76
[2019-09-26] MEDS: MEGESTROL ACETATE SUSP 400 MG/10 ML UDC PO SCH ×2 (09:27→21:20)
[2019-09-26] MEDS: PANTOPRAZOLE 40 MG TABLET.DR PO SCH (09:27)
[2019-09-26] MEDS: ZINC SULFATE 220 MG CAPSULE PO SCH (09:27)
[2019-09-26] MEDS: FERROUS SULFATE (325 MG) 325 MG/TAB TABLET PO SCH ×2 (09:27→16:30)
[2019-09-26] MEDS: DIVALPROEX SODIUM 250 MG TABLET.DR PO SCH ×2 (09:27→21:20)
[2019-09-26] MEDS: CHOLECALCIFEROL 1,000 UNIT TABLET (VIT D3) PO SCH (09:27)
[2019-09-26] MEDS: MEROPENEM 1 G in IV NS 0.9% 100 ML IV SCH ×2 (09:27→21:23)
[2019-09-26] MEDS: ACETAMINOPHEN 650 MG/20.3 ML UDC PO SCH (09:27)
[2019-09-26] MEDS: ENOXAPARIN SODIUM 40 MG/0.4 ML DISP.SYRIN SQ SCH (09:29)
[2019-09-26] MEDS: MUPIROCIN OINT 2% 22 GM TUBE SCH ×2 (09:32→21:19)
[2019-09-26] MEDS: ENSURE ENLIVE 237 ML LIQUID (VANILLA) PO SCH ×3 (09:33→16:31)
[2019-09-26] MEDS: Z GUARD REMEDY 2 OZ OINT TP SCH (09:33)
[2019-09-26] MEDS ORDERED: POTASSIUM CHLORIDE 20 MEQ POWDER PACKET PO SCH (11:00)
[2019-09-26] MEDS: CYANOCOBALAMIN 500 MCG TABLET PO SCH (11:08)
[2019-09-26 12:00] VITALS: BP 90/58
[2019-09-26] MEDS ORDERED: POTASSIUM CHLORIDE 20 MEQ TAB.PRT.SR PO SCH (15:00)
--- NOTE | 2019-09-26 15:27 | NUR ---
alert, very few words exchanged , in position, all contracted. Appetite remains poor all meals, on Megace. Did not even open mouth when got fed, nor medications. K+ today 3.3, got replaced with 40meq kclor. Continues with ivf, and abx ivpb
[2019-09-26 16:00] VITALS: BP 104/74
[2019-09-26] MEDS: DOCUSATE SODIUM 100 MG CAPSULE PO SCH (16:30)
[2019-09-26 20:00] VITALS: BP 118/61
[2019-09-26] MEDS ORDERED: ASCORBIC ACID 500 MG TABLET PO SCH (21:00)
[2019-09-27] VITALS: BP 127/60
[2019-09-27] MEDS: VANCOMYCIN 500 MG in IV D5W 100 ML IV SCH ×3 (03:00→19:44)
[2019-09-27 04:00] VITALS: BP 140/67
[2019-09-27] MEDS: IV D5/0.45 NACL 1,000 ML IV PRN (06:35)
[2019-09-27 07:05] LABS: BASOPHILS % (AUTO) 0.5 % (0.0-2.0); EOSINOPHILS % (AUTO) 4.1 % (0.0-6.0); HEMATOCRIT 37 % (33-45); HEMOGLOBIN 12.2 g/dL (11.5-14.8); LYMPHOCYTES # (AUTO) 2.3 /CMM (0.8-4.8); LYMPHOCYTES % (AUTO) 42.1 % (20.0-44.0); MEAN CORPUSCULAR HGB CONC 33 g/dl (31.0-36.0); MEAN CORPUSCULAR VOLUME 96 fL (82-100); MONOCYTES # (AUTO) 0.5 /CMM (0.1-1.30); MONOCYTES % (AUTO) 9.4 % (2.0-12.0); NEUTROPHILS # (AUTO) 2.4 /CMM (1.8-8.9); NEUTROPHILS % (AUTO) 43.9 % (43.0-81.0); PLATELET COUNT (AUTO) 272 /CMM (150-450); RED BLOOD CELL COUNT(AUTO) 3.83 MIL/uL (4.0-5.2); WHITE BLOOD COUNT (AUTO) 5.4 K/uL (4.3-11.0)
[2019-09-27 07:31] LABS: CALCIUM, SERUM 7.9 mg/dL (8.5-10.1); CREATININE 0.8 mg/dL (0.6-1.3); POTASSIUM 3.8 mmol/L (3.5-5.1)
--- NOTE | 2019-09-27 07:50 | NUR ---
RN OPENING NOTE: RECEIVED PATIENT IN BED THIS MORNING. PATIENT IS ALERT AND ORIENTED X0, RESPONDS TO VOICE AND TACTILE STIMULI. PATIENT IS ON O2 4L/MIN VIA NC SATING WELL, NO SIGNS OF RESPIRATORY DISTRESS NOTED. NO SIGNS OF ACUTE DISTRESS NOTED. PATIENT IS ON TELE MONITOR, SR AROUND THE 70S. PATIENT IS ON A PUREE DIET, CRUSH MEDS. WOUND CARE PER ORDERS. CHARLA MIDLINE, C/D/I, FLUSHES WELL, NO SIGNS OF COMPLICATIONS NOTED. ISOLATION PRECAUTIONS FOR COVID (+). SAFETY MEASURES IMPLEMENTED, BED IN LOWEST POSITION, LOCKED, SIDE RAILS UP X2, CALL LIGHT WITHIN REACH. WILL CONTINUE TO MONITOR PATIENT FOR CHANGES.
[2019-09-27 08:00] VITALS: BP 130/78
[2019-09-27] MEDS: DIVALPROEX SODIUM 250 MG TABLET.DR PO SCH ×2 (09:10→21:21)
[2019-09-27] MEDS: ACETAMINOPHEN 650 MG/20.3 ML UDC PO SCH (09:10)
[2019-09-27] MEDS: MEGESTROL ACETATE SUSP 400 MG/10 ML UDC PO SCH ×2 (09:10→21:22)
[2019-09-27] MEDS: FERROUS SULFATE (325 MG) 325 MG/TAB TABLET PO SCH (09:10)
[2019-09-27] MEDS: CYANOCOBALAMIN 500 MCG TABLET PO SCH (09:10)
[2019-09-27] MEDS: MEROPENEM 1 G in IV NS 0.9% 100 ML IV SCH ×2 (09:10→21:13)
[2019-09-27] MEDS: CHOLECALCIFEROL 1,000 UNIT TABLET (VIT D3) PO SCH (09:10)
[2019-09-27] MEDS: PANTOPRAZOLE 40 MG TABLET.DR PO SCH (09:11)
[2019-09-27] MEDS: Z GUARD REMEDY 2 OZ OINT TP SCH (09:11)
[2019-09-27] MEDS: ENSURE ENLIVE 237 ML LIQUID (VANILLA) PO SCH ×3 (09:11→17:26)
[2019-09-27] MEDS: ZINC SULFATE 220 MG CAPSULE PO SCH (09:11)
[2019-09-27] MEDS: MUPIROCIN OINT 2% 22 GM TUBE SCH ×2 (09:12→21:00)
[2019-09-27] MEDS: ENOXAPARIN SODIUM 40 MG/0.4 ML DISP.SYRIN SQ SCH (09:12)
--- NOTE | 2019-09-27 10:59 | NUR ---
AWAITING VANCO TROUGH PRIOR TO VANCO ADMINISTRATION. CONTACTED LAB TO INFORM THEM RESULTS ARE NOT IN YET. SHELVING SUPERVISOR WILL FOLLOW UP AND NOTIFY ME WITH UPDATES. AWAITING CALL BACK.
[2019-09-27 12:00] VITALS: BP 105/97
[2019-09-27 16:00] VITALS: BP_SYST 113; BP_SYST 116; BP_DIAS 64; BP_DIAS 65
[2019-09-27] MEDS: DOCUSATE SODIUM 100 MG CAPSULE PO SCH (17:26)
--- NOTE | 2019-09-27 19:00 | NUR ---
received Stephanie Sin in the bed . alert only to self. noted legs are comtracted up to the abd. midline left upper arem. diaper on d/t incontinent
--- NOTE | 2019-09-27 19:14 | NUR ---
RN CLOSING NOTE: PATIENT REMAINS IN BED. SATING WELL ON NC, NO SIGS OF RESPIRATORY DISTRESS NOTED. TELE MONITOR SR 90S. NO SIGNS OF ACUTE DISTRESS NOTED. ISOLATION PRECAUTIONS FOR COVID (+). SAFETY MEASURES IMPLEMENTED, BED IN LOWEST POSITION, LOCKED, SIDE RAILS UP X2. WILL ENDORSE TO ONCOMING SHIFT RN FOR CONTINUITY OF CARE.
[2019-09-27 20:28] VITALS: BP 140/65
--- NOTE | 2019-09-27 22:30 | NUR ---
During skin assessment noted she was scratching her face /shoulder/arm. noted maculapapular rash. noted on Vanco and merrim. call placed to MD GUANAKITO SONG and he d/cd the vanco and ordered Benadryl ix dose.
[2019-09-27] MEDS ORDERED: diphenhydrAMINE HCL 50 MG/ML VIAL IV ONE (23:30)
[2019-09-28] VITALS (9 sets, daily range): BP systolic 118–136; BP diastolic 57–91
--- NOTE | 2019-09-28 04:44 | NUR ---
CLOSING NOTES:PATIENT ON vANCO AND MERUM IVPB. DURING SKIN CHECK NOTED RASH ON HER FACE BACK ARMS SHOULDER, MACULUAPULAR LOOKING RASH. AUSTYN SURESH CALLED AND MADE HIM AWARE. VANCO D/CD AND ORDERED 0NE TIME DOSE BENADRLY IV WHICH WAS EFFECTIVE TO STOP HER FROM ITCHING. THE RASH STILL IS PRESENT. ISOLATION CONTINUESD FOR COVID + AND MRSA OF THE NARAS. SHE IS CONTRACTED ARMS AND LEGS AND IS ALERT THAT THAT SHE IS BEING TOUCHED AND REPOSITIONED . BM X1 THIS 12 HOURS, VOIDING 3 X INCONTINENT THIS 12 HOURS. ON A SPECIAL AIR BED D/T HER SKIN IS FRAGILE .
--- NOTE | 2019-09-28 08:00 | NUR ---
TELEPHONE INTERVIEWER OPENING NOTES RECEIVED PATIENT FROM JAVA SCALA DEVELOPER NURSE IN BED, IN POSTION, O2 AT 4LPM, NO SIGNS OF RESPIRATORY DISTRESS, LEFT ARM MIDLINE, NO SIGNS OF REDNESS OR INFILTRATION NOTED.
[2019-09-28] MEDS: Z GUARD REMEDY 2 OZ OINT TP SCH (09:00)
[2019-09-28] MEDS: MEGESTROL ACETATE SUSP 400 MG/10 ML UDC PO SCH ×2 (09:25→21:38)
[2019-09-28] MEDS: DOCUSATE SODIUM LIQ 100 MG/10 ML UDC PO SCH (09:25)
[2019-09-28] MEDS: MUPIROCIN OINT 2% 22 GM TUBE SCH ×2 (09:25→21:38)
[2019-09-28] MEDS: DIVALPROEX SODIUM 250 MG TABLET.DR PO SCH ×2 (09:25→21:38)
[2019-09-28] MEDS: MEROPENEM 1 G in IV NS 0.9% 100 ML IV SCH ×2 (09:26→21:37)
[2019-09-28] MEDS: PANTOPRAZOLE 40 MG TABLET.DR PO SCH (09:29)
[2019-09-28] MEDS: ENSURE ENLIVE 237 ML LIQUID (VANILLA) PO SCH ×3 (09:38→17:37)
[2019-09-28] MEDS: ENOXAPARIN SODIUM 40 MG/0.4 ML DISP.SYRIN SQ SCH (09:43)
[2019-09-28 17:36] LABS: APPEARANCE,URINE SL CLOUDY (CLEAR); BILIRUBIN,URINE NEGATIVE (NEGATIVE); BLOOD, URINE TRACE-INTA Ery/uL (NEGATIVE); COLOR,URINE YELLOW (YELLOW); KETONES,URINE 15 (NEGATIVE); LEUKOCYTE ESTERASE ,URINE NEGATIVE (NEGATIVE); NITRITE, URINE NEGATIVE (NEGATIVE); PROTEIN,URINE 30 mg/dl (NEGATIVE); UGLUCOSE NEGATIVE (NEGATIVE)
[2019-09-28 17:53] LABS: BACTERIA,URINE 1+ /HPF (None Seen); MUCUS,URINE Few /LPF (None Seen)
--- NOTE | 2019-09-28 19:04 | NUR ---
CORN GROWER CLOSING NOTES ENDORSED PATIENT TO SENIOR FACILITIES MANAGER NURSE IN BED, ASLEEP, LEFT ARM MIDLINE, NO REDNESS OR INFILTRATION NOTED, SIDE RAILS UP FOR SAFETY.
--- NOTE | 2019-09-28 19:30 | NUR ---
FRONT ELEVATOR OPERATOR OPENING NOTE RECEIVED PATIENT ON ISOLATION FOR COVID 19. PATIENT IN BED. A/O X1, RESPONDS TO TOUCH. PATIENT ON OXYGEN 4L/MIN VIA NASAL CANNULA. RESPIRATIONS ARE EVEN AND UNLABORED. NO S/S SOB NOTED. NO S/S PAIN AT THIS TIME. EXTERNAL TELE MONITOR READS SINUS RHYTHM HR 64, GOING IN AND OUT OF AFIB. IN NO APPARENT DISTRESS. IV ACCESS NARGIS MIDLINE PATENT AND SALINE LOCKED. BED IS LOW AND LOCKED, HOB ELEVATED IN SEMI FOWLERS, SIDE RAILS UP X3, EXTREMITIES OFFLOADED. CALL LIGHT WITHIN REACH. WILL CONTINUE TO MONITOR.
--- NOTE | 2019-09-28 19:30 | NUR ---
MS RN OPENING NOTE RECEIVED PATIENT ON ISOLATION FOR COVID 19. PATIENT IN BED. A/O X2, FARSI SPEAKING PER REPORT IS CONFUSED. TOLERATING ROOM AIR. RESPIRATIONS ARE EVEN AND UNLABORED. NO S/S SOB NOTED. NO C/O PAIN AT THIS TIME. IN NO APPARENT DISTRESS. NO IV ACCESS NOTED, PER REPORT MD AWARE. BED IS LOW AND LOCKED, HOB ELEVATED IN SEMI FOWLERS, SIDE RAILS UP X3. CALL LIGHT WITHIN REACH. WILL CONTINUE TO MONITOR. Addendum: 09/29/19 at 0622 by KRISTAN LAL RN PLEASE DISREGARD NOTE ABOVE. WRONG PATIENT.
[2019-09-29] VITALS: BP 126/81
[2019-09-29 04:00] VITALS: BP 132/85
--- NOTE | 2019-09-29 06:22 | NUR ---
RENT CONTROL OFFICE MANAGER CLOSING NOTE PATIENT ON ISOLATION FOR COVID 19. PATIENT IN BED. A/O X1, STILL RESPONDS TO TOUCH. PATIENT REMAINS ON OXYGEN 4L/MIN VIA NASAL CANNULA. RESPIRATIONS ARE EVEN AND UNLABORED. NO SOB NOTED. NO S/S PAIN. EXTERNAL TELE MONITOR READS SINUS RHYTHM HR 64. NO DISTRESS. IV ACCESS MAINTAINED NARGIS MIDLINE PATENT AND SALINE LOCKED. BED IS LOW AND LOCKED, HOB ELEVATED IN SEMI FOWLERS, SIDE RAILS UP X3, EXTREMITIES OFFLOADED, TURNED Q2HR. CALL LIGHT WITHIN REACH. WILL ENDORSE TO NEXT SHIFT.
[2019-09-29 07:05] LABS: BASOPHILS % (AUTO) 0.8 % (0.0-2.0); EOSINOPHILS % (AUTO) 6.6 % (0.0-6.0); HEMATOCRIT 34 % (33-45); HEMOGLOBIN 11.6 g/dL (11.5-14.8); LYMPHOCYTES # (AUTO) 1.9 /CMM (0.8-4.8); LYMPHOCYTES % (AUTO) 37.4 % (20.0-44.0); MEAN CORPUSCULAR HGB CONC 34 g/dl (31.0-36.0); MEAN CORPUSCULAR VOLUME 96 fL (82-100); MONOCYTES # (AUTO) 0.4 /CMM (0.1-1.30); NEUTROPHILS # (AUTO) 2.4 /CMM (1.8-8.9); NEUTROPHILS % (AUTO) 47.2 % (43.0-81.0); PLATELET COUNT (AUTO) 330 /CMM (150-450); RED BLOOD CELL COUNT(AUTO) 3.59 MIL/uL (4.0-5.2); WHITE BLOOD COUNT (AUTO) 5.1 K/uL (4.3-11.0)
[2019-09-29 07:13] LABS: BILIRUBIN,TOTAL 0.5 mg/dL (0.2-1.0); CALCIUM, SERUM 8.4 mg/dL (8.5-10.1); CREATININE 0.7 mg/dL (0.6-1.3); POTASSIUM 3.3 mmol/L (3.5-5.1); TOTAL PROTEIN, SERUM 6.1 g/dL (6.4-8.2)
--- NOTE | 2019-09-29 07:15 | NUR ---
BACON SKINNER NOTES RECEIVED PATIENT IN BED ALERT AND ORIENTED X1. RESPONSIVE TO VERBAL AND TACTILE STIMULI. HOB ELEVATED. NO SOB. ON 02 @ 4L/MIN KRHIS WELL WITH SPO2 OF 97%. ON TELE MONITORING SR: 66. NARGIS MIDLINE INTACT AND PATENT. BED IN LOWEST POSITION, LOCKED. BED ALARM ON. CALL LIGHT WITHIN REACH.
[2019-09-29 08:00] VITALS: BP 123/69
[2019-09-29] MEDS: DIVALPROEX SODIUM 250 MG TABLET.DR PO SCH ×2 (08:02→21:54)
[2019-09-29] MEDS: MEROPENEM 1 G in IV NS 0.9% 100 ML IV SCH ×2 (08:02→21:54)
[2019-09-29] MEDS: ENSURE ENLIVE 237 ML LIQUID (VANILLA) PO SCH ×3 (08:03→17:16)
[2019-09-29] MEDS: DOCUSATE SODIUM LIQ 100 MG/10 ML UDC PO SCH (08:03)
[2019-09-29] MEDS: MUPIROCIN OINT 2% 22 GM TUBE SCH ×2 (08:03→21:58)
[2019-09-29] MEDS: PANTOPRAZOLE 40 MG TABLET.DR PO SCH (08:03)
[2019-09-29] MEDS: Z GUARD REMEDY 2 OZ OINT TP SCH (08:03)
[2019-09-29] MEDS: MEGESTROL ACETATE SUSP 400 MG/10 ML UDC PO SCH ×2 (08:03→21:54)
[2019-09-29] MEDS: ENOXAPARIN SODIUM 40 MG/0.4 ML DISP.SYRIN SQ SCH (08:04)
[2019-09-29] MEDS ORDERED: POTASSIUM CHLORIDE 20 MEQ POWDER PACKET PO SCH (11:30)
[2019-09-29 12:00] VITALS: BP_SYST 119; BP_DIAS 70; BP_DIAS 79
[2019-09-29 16:00] VITALS: BP 139/91
[2019-09-29] MEDS: TRIAMCINOLONE ACETONIDE 0.1% CR 15 GM TUBE TP SCH (18:03)
--- NOTE | 2019-09-29 18:52 | NUR ---
PREP PERSON NOTES PATIENT RESTING COMFORTABLY IN BED. HOB ELEVATED. NO SOB. ON ROOM AIR WITH SPO2 OF 967%. NARGIS MIDLINE INTACT AND PATENT. ATE MEALS WITH FAIR INTAKE. BED IN LOWEST POSITION, LOCKED. BED ALARM ON. CALL LIGHT WITHIN REACH. IN NO APPARENT DISTRESS.
--- NOTE | 2019-09-29 19:10 | NUR ---
MANAGER OF COMPENSATION NOTES RECEIVED PATIENT IN BED ALERT AND ORIENTED X1. RESPIRATIONS EVEN AND UNLABORED WITH NO S/S OF ACUTE DISTRESS OR SOB NOTED. NO S/S OF PAIN AT THIS TIME. SAFETY MEASURES IN PLACE WITH BED IN LOWEST LOCKED POSITION WITH SIDE RAILS UP X2. CALL LIGHT WITHIN REACH. WILL CONTINUE TO MONITOR.
[2019-09-29 20:00] VITALS: BP 132/85
[2019-09-30] VITALS: BP 135/84
[2019-09-30 04:00] VITALS: BP 113/59
[2019-09-30 07:12] LABS: CALCIUM, SERUM 8.3 mg/dL (8.5-10.1); CREATININE 0.7 mg/dL (0.6-1.3); POTASSIUM 3.7 mmol/L (3.5-5.1)
--- NOTE | 2019-09-30 07:20 | NUR ---
ms rn received on bed, awake,alert,oriented x1, not in any form of distress, respirations even and unlabored,no sob noted,patient is contracted, repositioned for comfort.
--- NOTE | 2019-09-30 07:45 | NUR ---
FUR SEWER NOTES PATIENT IN BED ALERT AND ORIENTED X1. RESPIRATIONS EVEN AND UNLABORED WITH NO S/S OF ACUTE DISTRESS OR SOB NOTED THROUGHOUT SHIFT. NO S/S OF PAIN AT THIS TIME. SAFETY MEASURES IN PLACE WITH BED IN LOWEST LOCKED POSITION WITH SIDE RAILS UP X2. PT KEPT CLEAN, DRY, AND COMFORTABLE. CALL LIGHT WITHIN REACH. WILL ENDORSE TO ONCOMING NURSE FOR MAGY.
[2019-09-30 08:00] VITALS: BP 91/70
[2019-09-30] MEDS: ENSURE ENLIVE 237 ML LIQUID (VANILLA) PO SCH ×3 (09:00→17:00)
--- NOTE | 2019-09-30 09:10 | NUR ---
ms sams breakfast served,due meds given,tolerated well.
[2019-09-30] MEDS: PANTOPRAZOLE 40 MG TABLET.DR PO SCH (09:46)
[2019-09-30] MEDS: DOCUSATE SODIUM LIQ 100 MG/10 ML UDC PO SCH (09:46)
[2019-09-30] MEDS: DIVALPROEX SODIUM 250 MG TABLET.DR PO SCH ×2 (09:46→20:42)
[2019-09-30] MEDS: MEGESTROL ACETATE SUSP 400 MG/10 ML UDC PO SCH ×2 (09:46→20:42)
[2019-09-30] MEDS: MEROPENEM 1 G in IV NS 0.9% 100 ML IV SCH (09:48)
[2019-09-30] MEDS: TRIAMCINOLONE ACETONIDE 0.1% CR 15 GM TUBE TP SCH ×2 (09:49→17:22)
[2019-09-30] MEDS: Z GUARD REMEDY 2 OZ OINT TP SCH (09:50)
[2019-09-30] MEDS: MUPIROCIN OINT 2% 22 GM TUBE SCH ×2 (09:52→20:42)
[2019-09-30] MEDS: ENOXAPARIN SODIUM 40 MG/0.4 ML DISP.SYRIN SQ SCH (10:15)
[2019-09-30 12:00] VITALS: BP 106/65
[2019-09-30 16:00] VITALS: BP 132/57
--- NOTE | 2019-09-30 16:45 | NUR ---
ms rn on bed, no distress noted.
--- NOTE | 2019-09-30 19:30 | NUR ---
RN OPENING NOTES: Received pt resting in bed A&Ox1. On isolation for positive Covid-19. On tele monitor showing SR. NARGIS midline patent and flushing. Dressing c/d/i. Safety measures in place. Will continue to monitor.
[2019-09-30 20:00] VITALS: BP 127/69
--- NOTE | 2019-09-30 22:16 | NUR ---
On 4L/min NC tolerating well. No respiratory distress or SOB noted.
[2019-10-01] VITALS: BP 123/68
--- NOTE | 2019-10-01 01:28 | NUR ---
RN NOTE: Noted order for stat Covid-19 testing in order history. Called lab, no specimen received by them. Collected sample and dropped off to lab.
[2019-10-01 04:00] VITALS: BP 131/44
--- NOTE | 2019-10-01 06:42 | NUR ---
RN CLOSING NOTES: Pt resting in bed A&Ox1. Isolation precautions for Covid in place. On 4L/min NC tolerating well. No SOB or respiratory distress noted during shift. No acute changes noted during shift. On tele monitor showing SR/ST up to 120's. NARGIS midline patent and flushed. Dressing c/d/i. Safety measures in place. Will endorse to AM nurse for MAGY.
--- NOTE | 2019-10-01 07:45 | NUR ---
ACCOUNT INFORMATION CLERK NOTES PATIENT RESTING IN BED, NO RESPIRATORY DISTRESS. PATIENT ON O2 AT 4L VIVA NASAL CANULA. NO S/S OF ANY DISCOMFORT AT THIS TIME. SKIN WARM TO TOUCH, IV ACCESS SITE INTACT AND PATENT. SAFETY PRECAUTIONS IN PLACE. PATIENT'S NEEDS ATTENDED, BED ON LOWEST LOCKED POSITION, CALL LIGHT WITHIN REACH. WILL CONTINUE TO MONITOR.
[2019-10-01 08:00] VITALS: BP 128/74
[2019-10-01] MEDS: DIVALPROEX SODIUM 250 MG TABLET.DR PO SCH (08:47)
[2019-10-01] MEDS: DOCUSATE SODIUM LIQ 100 MG/10 ML UDC PO SCH (08:47)
[2019-10-01] MEDS: PANTOPRAZOLE 40 MG TABLET.DR PO SCH (08:47)
[2019-10-01] MEDS: MEGESTROL ACETATE SUSP 400 MG/10 ML UDC PO SCH (08:47)
[2019-10-01] MEDS: MUPIROCIN OINT 2% 22 GM TUBE SCH (08:47)
[2019-10-01] MEDS: Z GUARD REMEDY 2 OZ OINT TP SCH (08:48)
[2019-10-01] MEDS: TRIAMCINOLONE ACETONIDE 0.1% CR 15 GM TUBE TP SCH ×2 (08:49→17:56)
[2019-10-01] MEDS: ENOXAPARIN SODIUM 40 MG/0.4 ML DISP.SYRIN SQ SCH (09:02)
[2019-10-01] MEDS: ENSURE ENLIVE 237 ML LIQUID (VANILLA) PO SCH ×3 (09:03→17:56)
[2019-10-01 12:00] VITALS: BP 129/88
[2019-10-01 16:00] VITALS: BP 106/65
== END 2019-10-01 22:56 | DRG 871 ==
LOC: ER 01:11 → TELE1 02:59
PROVIDERS: ADMIT Internal Medicine; ATTEND Internal Medicine
PROC: 05HA33Z Insertion of Infusion Device into Left Brachial Vein, Percutaneous Approach (ICD-10-PCS; principal; 2019-09-26)
DX: A41.89 Other specified sepsis (principal); U07.1 COVID-19; J12.89 Other viral pneumonia; J15.9 Unspecified bacterial pneumonia; J96.01 Acute respiratory failure with hypoxia; E43 Unspecified severe protein-calorie malnutrition; G92 Toxic encephalopathy; N39.0 Urinary tract infection, site not specified; R64 Cachexia; E87.0 Hyperosmolality and hypernatremia; E87.2 Acidosis; N17.9 Acute kidney failure, unspecified; F03.90 Unspecified dementia, unspecified severity, without behavioral disturbance, psychotic disturbance, mood disturbance, and anxiety; F29 Unspecified psychosis not due to a substance or known physiological condition; F32.9 Major depressive disorder, single episode, unspecified; Z68.20 Body mass index [BMI] 20.0-20.9, adult; Z86.73 Personal history of transient ischemic attack (TIA), and cerebral infarction without residual deficits; G40.909 Epilepsy, unspecified, not intractable, without status epilepticus; J45.909 Unspecified asthma, uncomplicated; Z87.440 Personal history of urinary (tract) infections; Z22.322 Carrier or suspected carrier of Methicillin resistant Staphylococcus aureus; E86.0 Dehydration; R40.2412 Glasgow coma scale score 13-15, at arrival to emergency department; R13.10 Dysphagia, unspecified; F39 Unspecified mood [affective] disorder; K59.00 Constipation, unspecified; R62.7 Adult failure to thrive; M62.40 Contracture of muscle, unspecified site; X58.XXXA Exposure to other specified factors, initial encounter; Y92.89 Other specified places as the place of occurrence of the external cause; S90.921A Unspecified superficial injury of right foot, initial encounter; R91.8 Other nonspecific abnormal finding of lung field; R00.0 Tachycardia, unspecified; I10 Essential (primary) hypertension
CPT/HCPCS: 36415; 71045-TC; 80048-TC; 80053-TC; 80202-TC; 81000-TC; 82248-TC; 82550-TC; 82728-TC; 83605-TC; 83615-TC; 83735-TC; 83880; 84100-TC; 84443-TC; 84484-TC; 85025-TC; 85378-TC; 85730-TC; 86140-TC; 87040-TC; 87081-TC; 87086-TC; 92521; A6253; A6403; G0378; J0456; J1200; J1650; J2185; J2543; J3370; J3490; J7030; J7040; J7042; J7050; J7060

== ENCOUNTER 2019-10-08 10:54 | Inpatient (IN) | payer MEDICARE, OTHER ==
[~2019-10-08] VITALS: Ht 157.5 cm; Wt 45.4 kg
[~2019-10-08 10:54] MED LIST changes: +ACET-868 PO; -AMOX1TAB15 PO; +ASCO-352 PO; +BISA10SU11 RC; +CYAN250014 PO; +DIVA500T2 PO; +DOCU-141 PO; +FERR325T23 PO; -FURO-144 PO; +MAGN400O6 PO; +MEGE400O4 PO; +NA P133E RC; -NEOM28.3 TP; +OLAN2.5T3 PO; +PANT40TA4 PO; -POTA10CA43 PO; +POTA20TA83 PO; -SULF1TAB47 PO; +TYL2T PO
--- NOTE | 2019-10-08 11:00 | NUR ---
PT [id number] FROM SNF C/O SOB, O2 SAT 80S ON ROOM AIR, + COVID, PT IS AAOX0, NOTED RESPIRATORY DISTRESS, ON NON REBREATHER MASK, HOOKED TO PEN AND PENCIL REPAIRER, KEPT RESTED AND COMFORTABLE, WILL CONTNUE TO MONITOR.
--- NOTE | 2019-10-08 11:40 | NUR ---
RT AND RT AT BEDSIDE FOR INTUBATION SET UP.
--- NOTE | 2019-10-08 11:45 | NUR ---
IV LINE ESTABLISHED BLOOD DRAWN AND SENT TO LAB.
--- NOTE | 2019-10-08 11:57 | NUR ---
ETOMIDATE 20MG AND 70MG MG GIVEN IVP ORDERED BY .
--- NOTE | 2019-10-08 11:58 | NUR ---
INTUBATION DONE BY . ET TUBE SIZE 7, 20 AT THE LIP, + COLOR CHANGED.
--- NOTE | 2019-10-08 12:00 | NUR ---
RT AT BEDSIDE FOR VENT SET UP. RATE:16,02:100%,PEEP:5, TV:400
[2019-10-08 12:26] LABS: CALCIUM, SERUM 9.4 mg/dL (8.5-10.1); CARBON DIOXIDE 24 mmol/L (21-32); CHLORIDE 115 mmol/L (98-107); CREATININE 1.6 mg/dL (0.6-1.3); GLUCOSE 162 mg/dL (74-106); POTASSIUM 5.1 mmol/L (3.5-5.1); SODIUM SERUM 152 mmol/L (136-145); UREA NITROGEN, BLOOD 39 mg/dL (7-18)
[2019-10-08 12:32] LABS: BASOPHILS # (AUTO) 0.3 /CMM (0.0-0.2); BASOPHILS % (AUTO) 3.9 % (0.0-2.0); EOSINOPHILS % (AUTO) 1.6 % (0.0-6.0); HEMATOCRIT 34 % (33-45); HEMOGLOBIN 11.1 g/dL (11.5-14.8); LYMPHOCYTES # (AUTO) 0.8 /CMM (0.8-4.8); LYMPHOCYTES % (AUTO) 10.4 % (20.0-44.0); MEAN CORPUSCULAR HGB CONC 32 g/dl (31.0-36.0); MEAN CORPUSCULAR VOLUME 100 fL (82-100); MONOCYTES # (AUTO) 0.4 /CMM (0.1-1.30); MONOCYTES % (AUTO) 4.8 % (2.0-12.0); NEUTROPHILS # (AUTO) 6.2 /CMM (1.8-8.9); NEUTROPHILS % (AUTO) 79.3 % (43.0-81.0); PLATELET COUNT (AUTO) 584 /CMM (150-450); RED BLOOD CELL COUNT(AUTO) 3.45 MIL/uL (4.0-5.2); WHITE BLOOD COUNT (AUTO) 7.9 K/uL (4.3-11.0)
[2019-10-08] MEDS ORDERED: MULT-447 PO (12:33)
[2019-10-08] MEDS ORDERED: ONDA4TAB5 PO (12:33)
[2019-10-08] MEDS ORDERED: DIVA250T4 PO (12:33)
[2019-10-08] MEDS ORDERED: ZINC1CAP2 PO (12:33)
[2019-10-08] MEDS ORDERED: MUPI22OI7 (12:33)
[2019-10-08 12:39] LABS: ALANINE AMINOTRANSFERASE 16 U/L (12-78); ALBUMIN 1.9 g/dL (3.4-5.0); ALKALINE PHOSPHATASE 49 U/L (46-116); ASPARTATE AMINOTRANSFERASE 21 U/L (15-37); B-TYPE NATRIURETIC PEPTIDE 1349 PG/ML (0-125); BILIRUBIN,TOTAL 0.5 mg/dL (0.2-1.0)
[2019-10-08 12:50] LABS: CREATINE KINASE, TOTAL 169 U/L (26-192); FERRITIN 664 ng/mL (8-388)
[2019-10-08 13:07] LABS: C-REACTIVE PROTEIN 79.5 mg/dL (0.0-0.9)
--- NOTE | 2019-10-08 13:16 | NUR ---
NURSING SUP GAVE ICU 251.
[2019-10-08] MEDS ORDERED: ENOXAPARIN SODIUM 40 MG/0.4 ML DISP.SYRIN SQ ONE ×2 (13:30→13:52)
[2019-10-08] MEDS ORDERED: IV NS 0.9% 500 ML BAG IV ONE (14:00)
--- NOTE | 2019-10-08 14:32 | NUR ---
REPORT GIVEN TO SKYE CAMACHO FOR MAGY
[2019-10-08 14:33] LABS: ABG OXYGEN SATURATION 84.2 % (92.0-98.5); ABG PCO2 76.1 mmHg (35.0-45.0); ABG PH 7.111 (7.350-7.450); ABG PO2 70.8 mmHg (75.0-100.0); COHb 0.3 % (0.5-1.5); MetHb 0.7 % (0.0-1.5); O2Hb 83.4 % (94.0-97.0); PEEP,BG 5 cm H2O; SITE, ABG Left Brachial; VENT MODE, BG AC 100%; VT, ABG 400 mL
[2019-10-08 14:58] LABS: BILIRUBIN,DIRECT 0.2 mg/dL (0.0-0.2)
[2019-10-08] MEDS ORDERED: IV D5/0.45 NACL 1,000 ML IV PRN (15:30)
[2019-10-08] MEDS ORDERED: PIPERACILLIN /TAZOBACTAM 3.375 G in IV D5W 50 ML IV SCH (15:30)
[2019-10-08 16:00] VITALS: BP 81/41
[2019-10-08] MEDS ORDERED: PIPERACILLIN /TAZOBACTAM 3.375 G in IV D5W 50 ML IV ONE (16:00)
--- NOTE | 2019-10-08 16:00 | NUR ---
CHARGING OPERATOR NOTES RECEIVED PATIENT FROM ER WITH DIAGNOSIS OF RESPIRATORY FAILURE , COVID 19 POSITIVE, ADMITTING ORDERS NOT AVAILABLE , OBTUNDED , NON VERBAL , INTUBATED ETT 12/[address] WITH SPO2 OF 100% VIA MECHANICAL VENT SETTINGS ORDERED , ST 115 ON BEDSIDE MONITOR FC DRAINING WELL VIA GRAVITY , SKIN ASSESSMENT DONE NOTED WITH MULTIPLE WOUNDS , TOOK PICTURES AND PLACED IN THE CHART , PT OB PONCE BED , IV OF NARGIS # 20 WITH D5 1/2 NS @ 100ML/HR INFUSING WELL , R WRIST # 20 SL PATENT AND INTACT , DR HUMPHREYS NOTIFIED REGARDING ABG RESULTS , ORDERS RECEIVED . ALL NEEDS ATTENDED , WILL CONTINUE TO MONITOR
[2019-10-08] MEDS ORDERED: LORAZEPAM INJ 2 MG/ML VIAL IV PRN (16:30)
[2019-10-08] MEDS ORDERED: ENOXAPARIN SODIUM 40 MG/0.4 ML DISP.SYRIN SQ SCH (16:30)
[2019-10-08] MEDS ORDERED: HYOSCYAMINE SULFATE 0.125 MG TAB.SUBL SL PRN (16:30)
[2019-10-08] MEDS ORDERED: HYDROMORPHONE MDV 50 MG in IV D5W 225 ML IV PRN (16:30)
--- NOTE | 2019-10-08 16:30 | NUR ---
NIGHT CLEANER NOTES SEEN AND EVALUATED BY DR CALABRESE , DISCUSSED LABS , CURRENT VITAL SIGNS AND NEUROLOGICAL STATUS , PER MD HE WILL ORDER EXTUBATION AND COMFORT CARE , OK TO DC MEDICATIONS , KEEP DILAUDID , ATIVAN AND DILAUDID DRIP ORDERED .
--- NOTE | 2019-10-08 16:45 | NUR ---
WOOD MODEL MAKER NOTES OK TO DC MEDICATIONS PER DR CALABRESE
[2019-10-08 17:00] VITALS: BP 62/33
[2019-10-08] MEDS ORDERED: ONDANSETRON HCL/PF 4 MG/2 ML VIAL IV PRN (17:00)
[2019-10-08] MEDS ORDERED: HYDROMORPHONE 1 MG/1 ML DISP.SYRIN IV ONE (17:00)
--- NOTE | 2019-10-08 17:03 | NUR ---
SOAP CHIPPER NOTES RT CLAUDY AT BEDSIDE FOR EXTUBATION ORDERED , WILL PLACE PT 2LPM NC FOR COMFORT , WILL CONTINUE TO MONITOR
--- NOTE | 2019-10-08 17:25 | NUR ---
PATIENT EXTUBATED PER DR. CALABRESE. PT PLACED ON SUPPLEMENTAL OXYGEN @ 2LPM VIA N/C. SP02 97%, HR 112, RR 22 POST EXTUBATION. RN AWARE
[2019-10-08 18:00] VITALS: BP 50/28
--- NOTE | 2019-10-08 18:27 | NUR ---
BAGGING SALVAGER NOTES PT , ASYSTOLE ON THE MONITOR , NO PALPABLE PULSE , NO AUDIBLE HEART SOUNDS , PRONOUNCED BY DIMITRI CHARGE NURSE , CELY NURSING CART DRIVER , ADMITTING CHRIS AND DR CALABRESE NOTIFIED . WILL CALL [facility]
--- NOTE | 2019-10-08 18:43 | NUR ---
HOUSE PRINCIPAL NOTES CALLED [facility] , SPOKE WITH ZEE , [facility] OK TO RELEASE BODY CASE # [id number]
--- NOTE | 2019-10-08 19:00 | NUR ---
BATT MACHINE OPERATOR NOTES DOUBLE BAGGED PT PER PROTOCOL , ID BAND IN PLACE , ID TAGS PLACED IN THE TOE AND OUTSIDE THE BAG , NO BELONGING LIST NOTED UPON ADMISSION , DILAUDID DRIP WASTED BY MEE RN WITNESSED BY ANOTHER RN . WILL CALL SECURITY TO TRANSFER BODY TO THE [facility] , PT NO FAMILY MEMBER , BIOETHICS.
[2019-10-08] MEDS ORDERED: ALBUTEROL SULFATE 8 GM HFA.AER.AD IH SCH (19:30)
[2019-10-08] MEDS ORDERED: IPRATROPIUM BROMIDE 14 GM INHALER (or 12.9 GM) IH SCH (19:30)
[2019-10-08] MEDS ORDERED: PIPERACILLIN /TAZOBACTAM 3.375 G in IV D5W 100 ML IV SCH (21:00)
--- NOTE | 2019-10-09 21:21 | NUR ---
LAB CALLED REGARDING PT (+) COVID RESULT.
== END 2019-10-08 18:28 | disposition expired | DRG 871 ==
LOC: ER 10:59 → ICU 14:54
PROVIDERS: ADMIT Internal Medicine; ATTEND Internal Medicine
PROC: 5A1935Z Respiratory Ventilation, Less than 24 Consecutive Hours (ICD-10-PCS; principal; 2019-10-08)
PROC: 0BH17EZ Insertion of Endotracheal Airway into Trachea, Via Natural or Artificial Opening (ICD-10-PCS; 2019-10-08)
DX: A41.89 Other specified sepsis (principal); J96.01 Acute respiratory failure with hypoxia; J96.02 Acute respiratory failure with hypercapnia; I21.4 Non-ST elevation (NSTEMI) myocardial infarction; Z66 Do not resuscitate; Z51.5 Encounter for palliative care; E43 Unspecified severe protein-calorie malnutrition; J12.89 Other viral pneumonia; U07.1 COVID-19; J18.9 Pneumonia, unspecified organism; N17.9 Acute kidney failure, unspecified; G93.40 Encephalopathy, unspecified; R64 Cachexia; Z68.1 Body mass index [BMI] 19.9 or less, adult; E87.1 Hypo-osmolality and hyponatremia; J98.11 Atelectasis; R13.10 Dysphagia, unspecified; Z87.440 Personal history of urinary (tract) infections; Z87.01 Personal history of pneumonia (recurrent); Z86.73 Personal history of transient ischemic attack (TIA), and cerebral infarction without residual deficits; Z79.899 Other long term (current) drug therapy; G40.909 Epilepsy, unspecified, not intractable, without status epilepticus; Z88.1 Allergy status to other antibiotic agents; Z88.5 Allergy status to narcotic agent; Z88.2 Allergy status to sulfonamides; E86.0 Dehydration; R91.8 Other nonspecific abnormal finding of lung field; F29 Unspecified psychosis not due to a substance or known physiological condition; F03.90 Unspecified dementia, unspecified severity, without behavioral disturbance, psychotic disturbance, mood disturbance, and anxiety; F32.9 Major depressive disorder, single episode, unspecified; L89.159 Pressure ulcer of sacral region, unspecified stage; M62.40 Contracture of muscle, unspecified site; I10 Essential (primary) hypertension; F39 Unspecified mood [affective] disorder; J45.909 Unspecified asthma, uncomplicated; K59.00 Constipation, unspecified; R62.7 Adult failure to thrive
CPT/HCPCS: 36415; 36600; 71045-TC; 80053-TC; 82248-TC; 82550-TC; 82728-TC; 82803-TC; 83605-TC; 83615-TC; 83880; 84484-TC; 85025-TC; 85378-TC; 86140-TC; 87040-TC; 87086-TC; 94002-TC; A6253; G0378; J1170; J1650; J2543; J3490; J7030; J7050; J7060